=== PATIENT | female | born 1935 | race Caucasian/White ===

== ENCOUNTER 2018-10-24 09:28 | Inpatient (IN) | payer OTHER, MEDICARE ==
--- NOTE | 2018-10-24 10:13 | PDOC ---
History of Present Illness - General Chief Complaint: Edema Stated Complaint: BILATERAL LEG SWELLING Time Seen by Provider: 10/24/18 09:57 History Source: Patient (Patient brought in by ambulance from an assisted living facility because she couldn't walk due to swelling of her legs badly swollen as bad "as when she was ", SOB), EMS Exam Limitations: Clinical Condition - History of Present Illness Timing/Duration: unsure, getting worse Severity: moderate, severe Associated Symptoms: reports: shortness of breath, weakness Past History - Travel Traveled outside of the country in the last 30 days: No Close contact w/someone who was outside of country & ill: No - Past Medical History Allergies/Adverse Reactions: Allergies Allergy/AdvReac Type Severity Reaction Status Date / Time No Known Allergies Allergy Unverified 10/24/18 09:30 Home Medications: Ambulatory Orders Aspirin [Aspirin EC] 81 mg PO DAILY 10/24/18 Cholecalciferol (Vitamin D3) [Vitamin D3] 2,000 unit PO DAILY 10/24/18 Metoprolol Succinate [Toprol Xl] 200 mg PO DAILY 10/24/18 Simvastatin 20 mg PO DAILY 10/24/18 Aspirin [ASA -] 81 mg PO DAILY tab.chew 10/29/18 Azithromycin [Zithromax 250mg Tablets -] 250 mg PO DAILY 7 Days #7 tablet Furosemide [Lasix -] 20 mg PO DAILY tablet 10/29/18 Levothyroxine [Synthroid -] 25 mcg PO DAILY@0700 tablet 10/29/18 Magnesium Oxide [Mag-Ox -] 400 mg PO BID tablet 10/29/18 Metoprolol Succinate [Toprol XL -] 200 mg PO DAILY tab.sr.24h 10/29/18 Sacubitril/Valsartan [Entresto 49 mg-51 mg Tablet] 1 tab PO BID tablet Spironolactone [Aldactone -] 25 mg PO DAILY tablet 10/29/18 Venlafaxine HCl [Effexor -] 25 mg PO DAILY tablet 10/29/18 COPD: No CHF: Yes HTN: Yes Hypercholesterolemia: Yes Other medical history: arthritis, hernia , bleeding ulcer - Suicide/Smoking/Psychosocial Hx Smoking History: Former smoker Have you smoked in the past 12 months: No If you are a former smoker, when did you quit?: 40 years Information on smoking cessation initiated: No Hx Alcohol Use: No Drug/Substance Use Hx: No Review of Systems - Review of Systems Able to Perform ROS?: Yes Is the patient limited Mongolian proficient: Yes Constitutional: Yes: Symptoms Reported, See HPI, Malaise, Weakness HEENTM: No: Symptoms Reported, See HPI, Eye Pain, Blurred Vision, Tearing, Recent change in vision, Double Vision, Cataracts, Ear Pain, Ocular Prothesis, Ear Discharge, Nose Pain, Nose Congestion, Tinnitus, Nose Bleeding, Hearing Loss , Throat Pain, Throat Swelling, Mouth Pain, Dental Problems, Difficulty Swallowing, Mouth Swelling, Other Respiratory: Yes: SOB with Exertion Cardiac (ROS): No: Symptoms Reported, See HPI, Chest Pain, Edema, Irregular Heart Rate, Lightheadedness, Palpitations, Syncope, Chest Tightness, Other ABD/GI: No: Symptoms Reported, See HPI, Abdominal Distended, Abd. Pain w/ defecation, Blood Streaked Bowels, Constipated, Diarrhea, Difficulty Swallowing , Nausea, Poor Appetite, Poor Fluid Intake, Rectal Bleeding, Vomiting, Indigestion, Abdominal cramping, Tarry Stools, Other : Yes: Frequency Musculoskeletal: Yes: See HPI, Other (swollen bilateral lower extremities) Integumentary: Yes: Symptoms Reported, Rash (chronic eczematous scaly red skin lower extremities), Other Neurological: Yes: Symptoms reported, Weakness Psychiatric: Yes: Depression All Other Systems: Reviewed and Negative *Physical Exam - Vital Signs Last Vital Signs Temp Pulse Resp BP Pulse Ox 97.9 F 95 H 16 153/81 95 10/24/18 09:29 10/24/18 09:29 10/24/18 09:29 10/24/18 09:10/24/18 09:29 - Physical Exam General Appearance: Yes: Nourished, Appropriately Dressed, Moderate Distress, Thin HEENT: positive: WHIT Neck: positive: Supple Respiratory/Chest: positive: Decreased Breath Sounds Cardiovascular: positive: Regular Rhythm Gastrointestinal/Abdominal: positive: Normal Bowel Sounds, Soft. negative: Tender, Organomegaly, Decreased BS Extremity: positive: Delayed Capillary Refill, Swelling Integumentary: positive: Normal Color, Other (Distal skin chronic changes lower extremities, pressure ulcers, presacral area) Neurologic: positive: literary agent II-XII NML intact, Alert, Normal Mood/Affect Heart Score/ECG Review - Age Age: 45-65 - Risk Factors Risk Factors Heart Score: Yes Hx Hypertension - Troponin Troponin: </= normal limit - ECG Intrepretation Rhythm: Regular Rhythm - Riegelwood Riegelwood: Left [place] Deviation - P and [place] Atrial Enlargement: Left - ST and T Comment:: LBBB 11/01/18 17:56 - ECG Impressions Torsades burke Pointes: No ED Treatment Course - LABORATORY CBC & Chemistry Diagram: 10/24/18 10:20 10/28/18 08:00 - RADIOLOGY Radiology Studies Ordered: Category Date Time Status SALOMON [CHEST X-RAY PORTABLE*] [RAD] Stat Radiology 10/24/18 09:42 Ordered Medical Decision Making - Critical Care Time Total Critical Care Time (minutes): 30 Critical Care Statement: The care of this patient involved high complexity decision making to prevent further life threatening deterioration of the patient 's condition and/or to evaluate & treat vital organ system(s) failure or risk of failure. - Medical Decision Making Patient condition with bilateral leg edema , LBBB on EKG , unknown time warranted further exploration and treatment as inpatient, Discussed with PMD, Dr Juares present here Patient's daughter present here, informed about the status 11/01/18 17:57 *DC/Admit/Observation/Transfer Diagnosis at time of Disposition: Left bundle branch block (LBBB) CHF exacerbation Qualifiers: Heart failure type: combined systolic and diastolic Qualified Code(s): I50.43 - Acute on chronic combined systolic (congestive) and diastolic (congestive) heart failure Hypothyroidism Qualifiers: Hypothyroidism type: other Qualified Code(s): E03.8 - Other specified hypothyroidism - Discharge Dispostion Condition at time of disposition: Stable Decision to Admit order: Yes - Referrals - Patient Instructions - Post Discharge Activity
[2018-10-24 10:43] LABS: BASO % 0.8 % (0-2.0); EOS % 0.4 % (0-4.5); HEMATOCRIT 39.1 % (32.4-45.2); LYMPH % 18.1 % (8-40); MCH 28.2 pg (25.7-33.7); MCHC 33.2 g/dl (32.0-36.0); MEAN PLT VOLUME 7.7 fl (7.5-11.1); MONO % 9.8 % (3.8-10.2); NEUT % 70.9 % (42.8-82.8); PLATELET COUNT 260 K/MM3 (134-434); RDW 15.9 % (11.6-15.6); WHITE BLOOD COUNT 5.9 K/mm3 (4.0-10.8)
--- NOTE | 2018-10-24 11:49 | EKG ---
Test Reason : Blood Pressure : / mmHG Vent. Rate : 093 BPM Atrial Rate : 093 BPM P-R Int : 156 ms QRS Dur : 136 ms QT Int : 416 ms P-R-T Axes : 082 -49 120 degrees QTc Int : 517 ms SINUS RHYTHM WITH PREMATURE ATRIAL COMPLEXES LEFT AXIS DEVIATION LEFT BUNDLE BRANCH BLOCK ABNORMAL ECG NO PREVIOUS ECGS AVAILABLE Confirmed by FELI EASLEY, MAIA ([id number]) on 10/24/2018 11:49:19 AM Referred By: ZENA FORD Confirmed By:MAIA EDMOND MD
[2018-10-24 12:01] LABS: ALBUMIN 2.7 g/dl (3.4-5.0); BILIRUBIN,TOTAL 0.8 mg/dl (0.2-1); CALCIUM 8.4 mg/dl (8.5-10); CREATININE 0.7 mg/dl (0.55-1.3); POTASSIUM 3.8 mmol/L (3.5-5.1); TOT PROT 6.3 g/dl (6.4-8.2)
[2018-10-24] MEDS ORDERED: FUROSEMIDE 40 MG/4 ML INJECTABLE VIAL IVPUSH ONE (14:45)
--- NOTE | 2018-10-24 17:06 | CON.CARD ---
Consult Consult Specialty:: Cardiology Referred by:: Deepti Juares MD Reason for Consultation:: Volume overload - History of Present Illness Chief Complaint: LE edema History of Present Illness: 83 yo female h/o hypertensive heart disease, hyperlipidemia, diastolic failure referred from assisted living facility with progressive bilateral lower extremity swelling without dyspnea, orthopnea, PND, near or true syncope or palpitations, patient reports compliance with diet and medications. - History Source History Provided By: Patient Limitations to Obtaining History: No Limitations - Past Medical History ...: No - Alcohol/Substance Use Hx Alcohol Use: No - Smoking History Smoking history: Former smoker Have you smoked in the past 12 months: No If you are a former smoker, when did you quit?: 40 years Home Medications - Allergies Allergies/Adverse Reactions: Allergies Allergy/AdvReac Type Severity Reaction Status Date / Time No Known Allergies Allergy Unverified 10/24/18 09:30 - Home Medications Home Medications: Ambulatory Orders Aspirin [Aspirin EC] 81 mg PO DAILY 10/24/18 Cholecalciferol (Vitamin D3) [Vitamin D3] 2,000 unit PO DAILY 10/24/18 Furosemide [Lasix] 40 mg PO DAILY 10/24/18 Metoprolol Succinate [Toprol Xl] 200 mg PO DAILY 10/24/18 Olmesartan Medoxomil 40 mg PO DAILY 10/24/18 Potassium Chloride [K-Dur -] 20 meq PO DAILY 10/24/18 Simvastatin 20 mg PO DAILY 10/24/18 Review of Systems - Review of Systems Cardiovascular: reports: Edema Vital Signs: Vital Signs Temperature 97.9 F 10/24/18 14:19 Pulse Rate 87 10/24/18 14:19 Respiratory Rate 20 10/24/18 14:19 Blood Pressure 157/71 10/24/18 14:19 O2 Sat by Pulse Oximetry (%) 96 10/24/18 14:19 Constitutional: Yes: No Distress, Calm, Thin Neck: Yes: Supple Respiratory: Yes: Regular, Diminished Gastrointestinal: Yes: Normal Bowel Sounds, Soft Cardiovascular: Yes: Regular Rate and Rhythm JVD: No Carotid Bruit: No Heart Sounds: Yes: S1, S2 Edema: Yes Edema: LLE: 2+, RLE: 2+ Integumentary: Yes: Venous Stasis Changes - Other Data Labs, Other Data: CBC, BMP 10/24/18 10:20 10/24/18 11:15 Troponin, BNP 10/24/18 10/24/18 11:15 11:15 Troponin I 0.08 H B-Natriuretic Peptide 00590.6 H Troponin, BNP 10/24/18 10/24/18 11:15 11:15 Troponin I 0.08 H B-Natriuretic Peptide 38377.6 H NSR @ 93 LAD, LBBB Imaging - Results Chest X-ray: Report Reviewed (NAD) Problem List - Problems (1) Hypertensive heart disease with acute on chronic diastolic congestive heart failure Code(s): I11.0 - HYPERTENSIVE HEART DISEASE WITH HEART FAILURE; I50.33 - ACUTE ON CHRONIC DIASTOLIC (CONGESTIVE) HEART FAILURE (2) Hyperlipidemia Code(s): E78.5 - HYPERLIPIDEMIA, UNSPECIFIED Qualifiers: Hyperlipidemia type: pure hypercholesterolemia Qualified Code(s): E78.00 - Pure hypercholesterolemia, unspecified; E78.0 - Pure hypercholesterolemia (3) Subendocardial ischemia Code(s): I24.8 - OTHER FORMS OF ACUTE ISCHEMIC HEART DISEASE (4) Left bundle branch block (LBBB) Code(s): I44.7 - LEFT BUNDLE-BRANCH BLOCK, UNSPECIFIED (5) CHF exacerbation Code(s): I50.9 - HEART FAILURE, UNSPECIFIED Qualifiers: Heart failure type: diastolic Qualified Code(s): I50.33 - Acute on chronic diastolic (congestive) heart failure Assessment/Plan 1. Acute on chronic LV diastolic heart failure 2. Hypertensive heart disease 3. Hyperlipidemia 4. Subendocardial ischemia 5. Left bundle branch block P 1: IV diuresis with monitor diuretic response, renal fxn and electrolytes, trend trops, check TSH and lipid panel 2. Continue ASA 81 qd, Toprol XL 200 qd, Benicar 40 qd and Zocor 20 qhs 3. Echocardiogram to assess ventricular and valve fxn 4. Thank you for consultative opportunity
[2018-10-24 20:47] LABS: EPITHELIAL CELLS FEW /hpf
[2018-10-24] MEDS: ATORVASTATIN CA 20 MG TABLET (FP) PO SCH (21:21)
--- NOTE | 2018-10-24 21:49 | HP ---
Admitting History and Physical - Admission Chief Complaint: weak ower extrmities and inability to walk History of Present Illness: 83 yo female resident at [facility] developed over the past 2 weeks edema of the lower extremities and difficulty ambulating without dyspnea, palpitations or chest pain. Approximately 1 month ago she was treated with Zithromax for an"upper respiratory tract infection" and improved clinically. Patient has a baseline of +2 edema. I evaluated her 3 days ago and prescribed Lasix 40 mg daily. Patient took 2 doses until now.Today although edema improved the patient had difficulty walking and weakness.Patient denies chest pain or palpitations. EMS was activated. History Source: Patient, Medical Record Limitations to Obtaining History: Clinical Condition - Past Medical History ...: No - Past Surgical History Additional Past Surgical History: right hip replacement - Smoking History Smoking history: Former smoker Have you smoked in the past 12 months: No If you are a former smoker, when did you quit?: 40 years - Alcohol/Substance Use Hx Alcohol Use: No Home Medications - Allergies Allergies/Adverse Reactions: Allergies Allergy/AdvReac Type Severity Reaction Status Date / Time No Known Allergies Allergy Unverified 10/24/18 09:30 - Home Medications Home Medications: Ambulatory Orders Aspirin [Aspirin EC] 81 mg PO DAILY 10/24/18 Cholecalciferol (Vitamin D3) [Vitamin D3] 2,000 unit PO DAILY 10/24/18 Furosemide [Lasix] 40 mg PO DAILY 10/24/18 Metoprolol Succinate [Toprol Xl] 200 mg PO DAILY 10/24/18 Olmesartan Medoxomil 40 mg PO DAILY 10/24/18 Potassium Chloride [K-Dur -] 20 meq PO DAILY 10/24/18 Simvastatin 20 mg PO DAILY 10/24/18 Review of Systems - Review of Systems Constitutional: reports: Weakness Eyes: reports: No Symptoms HENT: reports: Other (rhinorrhea) Neck: reports: No Symptoms Cardiovascular: reports: Edema Respiratory: reports: No Symptoms Gastrointestinal: denies: Abdominal Pain Genitourinary: reports: No Symptoms Breasts: reports: No Symptoms Reported Integumentary: reports: Erythema (of the antior shins bilarally, no discharge,) Neurological: reports: Weakness Endocrine: reports: No Symptoms Hematology/Lymphatic: reports: No Symptoms Psychiatric: reports: Depression Physical Examination Vital Signs: Vital Signs Temperature 97.9 F 10/24/18 14:19 Pulse Rate 87 10/24/18 14:19 Respiratory Rate 20 10/24/18 14:19 Blood Pressure 157/71 10/24/18 14:19 O2 Sat by Pulse Oximetry (%) 96 10/24/18 14:19 Findings/Remarks: Patient was seen in ER. She is alert and oriented and says that she did not fall. Tehr eis no dyspnea. Constitutional: Yes: No Distress, Mild Distress Eyes: Yes: Conjunctiva Clear, EOM Intact HENT: Yes: Atraumatic, Normocephalic Neck: Yes: Supple, Trachea Midline Cardiovascular: Yes: Regular Rate and Rhythm, S1, S2 Respiratory: Yes: Regular, CTA Bilaterally, SOB, SOB on Exertion. No: Cough, Dullness, Orthopnea, Rales, Rhonchi, Wheezes Gastrointestinal: Yes: Normal Bowel Sounds, Soft, Abdomen, Obese. No: Ascites, Hepatomegaly, Splenomegaly Musculoskeletal: Yes: Joint Swelling (bilateral at ankle level and elbows) Extremities: Yes: Erythema. No: Calf Tenderness Edema: LLE: 2+, RLE: 2+ Peripheral Pulses WNL: No (difficult to assess due to edema) Neurological: Yes: Alert, Oriented, Weakness Psychiatric: Yes: Alert, Oriented Labs: CBC, BMP 10/24/18 10:20 10/24/18 11:15 Imaging - Results Chest X-ray: Other (read by me: cardiomegaly, no pleural effuson, no infiltarte , right parahilar infiltrate) Problem List - Problems (1) CHF exacerbation Assessment/Plan: LAsix 40 mg iv daily ECHO CArdiology consult EKG cardiac enzymes, LIPIDS, tsh ALL PREVIOUSLY NORMAL Code(s): I50.9 - HEART FAILURE, UNSPECIFIED Qualifiers: Heart failure type: combined systolic and diastolic Qualified Code(s): I50.43 - Acute on chronic combined systolic (congestive) and diastolic ( congestive) heart failure (2) Hypertensive heart disease with acute on chronic diastolic congestive heart failure Assessment/Plan: continue Losartan add LAsix Code(s): I11.0 - HYPERTENSIVE HEART DISEASE WITH HEART FAILURE; I50.33 - ACUTE ON CHRONIC DIASTOLIC (CONGESTIVE) HEART FAILURE (3) Left bundle branch block (LBBB) Assessment/Plan: PRE EXISTENT AND NOT A NEW EVENT Code(s): I44.7 - LEFT BUNDLE-BRANCH BLOCK, UNSPECIFIED (4) Pneumonia Assessment/Plan: the radiological image present in the right hilum could be the related to the respiratory symptoms pateint had 1 month ago and fo which she was trtaeted at this time there is no cough or chest pain I would err on eside of treating and add Ceftriaxone 1 gm daily 10 days plus Zithromax Code(s): J18.9 - PNEUMONIA, UNSPECIFIED ORGANISM (5) Cellulitis of lower extremity Assessment/Plan: on Ceftriaxone LAsix 40 mg daily Code(s): L03.119 - CELLULITIS OF UNSPECIFIED PART OF LIMB Qualifiers: Laterality: unspecified laterality Qualified Code(s): L03.119 - Cellulitis of unspecified part of limb
[2018-10-25 07:47] LABS: CREATININE 0.7 mg/dl (0.55-1.3); MAGNESIUM 1.5 mg/dL (1.8-2.4); POTASSIUM 4.1 mmol/L (3.5-5.1)
[2018-10-25] MEDS ORDERED: MAGNESIUM 1GM/D5W - 1 GM/100 ML IVPB IVPB ONE (08:30)
[2018-10-25] MEDS ORDERED: AZITHROMYCIN 500 MG TABLET PO ONE (08:30)
[2018-10-25] MEDS: CEFTRIAXONE 1 G/50 ML PREMIX 50 ML IVPB SCH ×2 (08:47→10:08)
[2018-10-25] MEDS ORDERED: VALSARTAN 160 MG TABLET (UD) PO SCH (10:00)
[2018-10-25] MEDS: FUROSEMIDE 40 MG/4 ML INJECTABLE VIAL IVPUSH SCH (10:09)
[2018-10-25] MEDS: MAGNESIUM OXIDE 400 MG TABLET (FP) PO SCH ×2 (10:09→21:14)
[2018-10-25] MEDS: ASPIRIN 81 MG CHEWABLE TABLETS PO SCH (10:09)
--- NOTE | 2018-10-25 12:10 | ECHO ---
Name: CORNELIUS ZACH Exam:Adult Echocardiogram Study Date: 10/25/2018 08:37 AM Age: 83 yrs Reason For Study: CHF Height: 59 in Weight: 99 lb BSA: 1.4 m2 MMode/2D Measurements & Calculations IVSd: 1.2 cm Ao root diam: 2.6 cm LVIDd: 4.2 cm LA dimension: 3.9 cm LVIDs: 3.4 cm LVPWd: 1.1 cm EDV(Teich): 79.2 ml LVOT diam: 2.0 cm ESV(Teich): 48.7 ml Doppler Measurements & Calculations MV E max eliot: 123.4 cm/sec MV A max eliot: 152.6 cm/sec MV dec slope: 1969 cm/sec2 MV E/A: 0.81 Ao V2 max: 287.5 cm/sec LV V1 max P.4 mmHg Ao max P.1 mmHg LV V1 mean P.6 mmHg Ao V2 mean: 203.2 cm/sec LV V1 max: 76.8 cm/sec Ao mean P.3 mmHg LV V1 mean: 61.1 cm/sec Ao V2 VTI: 64.0 cm LV V1 VTI: 14.8 cm BEKAH(I,D): 0.73 cm2 BEKAH(V,D): 0.84 cm2 MR max eliot: 526.7 cm/sec SV(LVOT): 46.5 ml MR max P.3 mmHg TR max eliot: 333.4 cm/sec PA V2 max: 98.9 cm/sec TR max P.6 mmHg PA max P.9 mmHg PI end-d eliot: 133.7 cm/sec Procedure A complete two-dimensional transthoracic echocardiogram was performed (2D, M-mode, Doppler and color flow Doppler). Left Ventricle The left ventricle is normal in size. Ejection Fraction = 20-25%. Left ventricular systolic function is severely reduced. There is severe global hypokinesis of the left ventricle. Right Ventricle The right ventricle is normal in size and function. Atria The left atrium is mildly dilated. The right atrium is mildly dilated. Mitral Valve There is moderate mitral regurgitation. Tricuspid Valve There is mild tricuspid regurgitation. Right ventricular systolic pressure is elevated at 40-50mmHg. Aortic Valve Moderate valvular aortic stenosis. Trace to mild aortic regurgitation. Pulmonic Valve Trace pulmonic valvular regurgitation. Great Vessels The aortic root is normal size. Pericardium/Pleura There is no pericardial effusion. Interpretation Summary Left ventricular systolic function is severely reduced. There is severe global hypokinesis of the left ventricle. The right ventricle is normal in size and function. The left atrium is mildly dilated. The right atrium is mildly dilated. There is moderate mitral regurgitation. There is mild tricuspid regurgitation. Right ventricular systolic pressure is elevated at 40-50mmHg. Trace to mild aortic regurgitation. Moderate valvular aortic stenosis. Trace pulmonic valvular regurgitation. MD Ben Oconnell 10/25/2018 12:09 PM
--- NOTE | 2018-10-25 12:59 | PN ---
Progress Note, Physician History of Present Illness: Bilateral lower extremity swelling improving with diuresis. Denies dyspnea, orthopnea, PND, near or true syncope or palpitations. - Current Medication List Current Medications: Active Medications Aspirin (Asa -) 81 mg PO DAILY [facility] Last Admin: 10/25/18 10:09 Dose: 81 mg Atorvastatin Calcium (Lipitor -) 20 mg PO HS [facility] Last Admin: 10/24/18 21:21 Dose: 20 mg Azithromycin (Zithromax -) 250 mg PO DAILY [facility] Stop: 10/28/18 10:01 Furosemide (Lasix Injection -) 40 mg IVPUSH DAILY [facility] Last Admin: 10/25/18 10:09 Dose: 40 mg Ceftriaxone Sodium (Ceftriaxone 1 Gm-D5w Bag) 50 mls @ 100 mls/hr IVPB DAILY [facility] Last Admin: 10/25/18 10:08 Dose: Not Given Magnesium Oxide (Mag-Ox -) 400 mg PO BID [facility] Last Admin: 10/25/18 10:09 Dose: 400 mg Metoprolol Succinate (Toprol Xl -) 200 mg PO DAILY [facility] Last Admin: 10/25/18 10:09 Dose: 200 mg Valsartan (Diovan -) 160 mg PO DAILY [facility] Last Admin: 10/25/18 10:09 Dose: 160 mg - Objective Vital Signs: Vital Signs Temperature 98.4 F 10/25/18 09:04 Pulse Rate 96 H 10/25/18 09:04 Respiratory Rate 18 10/25/18 09:04 Blood Pressure 130/71 10/25/18 09:04 O2 Sat by Pulse Oximetry (%) 97 10/25/18 09:00 Constitutional: Yes: No Distress, Calm, Thin Neck: Yes: Supple Cardiovascular: Yes: Regular Rate and Rhythm Respiratory: Yes: Regular, Diminished, On Nasal O2 Gastrointestinal: Yes: Normal Bowel Sounds, Soft Edema: No Labs: CBC, BMP 10/24/18 10:20 10/25/18 07:15 - ....Imaging EKG: Report Reviewed (Tele: NSR) Problem List - Problems (1) Hyperlipidemia Code(s): E78.5 - HYPERLIPIDEMIA, UNSPECIFIED Qualifiers: Qualified Code(s): E78.00 - Pure hypercholesterolemia, unspecified; E78.0 - Pure hypercholesterolemia (2) Subendocardial ischemia Code(s): I24.8 - OTHER FORMS OF ACUTE ISCHEMIC HEART DISEASE (3) Left bundle branch block (LBBB) Code(s): I44.7 - LEFT BUNDLE-BRANCH BLOCK, UNSPECIFIED (4) CHF exacerbation Code(s): I50.9 - HEART FAILURE, UNSPECIFIED Qualifiers: Qualified Code(s): I50.43 - Acute on chronic combined systolic (congestive) and diastolic (congestive) heart failure (5) Hypertensive cardiomyopathy Code(s): I11.9 - HYPERTENSIVE HEART DISEASE WITHOUT HEART FAILURE; I43 - CARDIOMYOPATHY IN DISEASES CLASSIFIED ELSEWHERE Qualifiers: Qualified Code(s): I11.0 - Hypertensive heart disease with heart failure; I43 - Cardiomyopathy in diseases classified elsewhere Assessment/Plan 10/24/2018 Echocardiogram: Normal LV size with severe decreased LVED 20-25%, normal RV size and fxn, mild LINDA, mod MR, mild TR RVSP 40-50 mmHg, tr-mild AR, mod MG 18 mmHg, tr [place] 1. Acute on chronic LV diastolic/systolic heart failure resolving 2. Hypertensive heart disease 3. Hyperlipidemia 4. Subendocardial ischemia 5. Left bundle branch block 6. Abnormal TSH suggestive of hypothyroidism P 1: Oral diuresis with monitor diuretic response, renal fxn and electrolytes, trops downtrending, check full TFTs 2. Continue ASA 81 qd, Toprol XL 200 qd, Lipitor 20 qhs, change Diovan 160 qd to Entresto 49/51 bid, start Aldactone 25 qd 3. Ideally recommend R&LHc to establish etiology of cardiomyopathy, LifeVest and consideration for SHIRT FOLDER-D once euvolemic, but patient wants only medical therapy for now after discussion of risks and benefits, will readdress at a later date
[2018-10-25] MEDS: SPIRONOLACTONE 25 MG TABLET (FP) PO SCH (15:05)
[2018-10-25] MEDS ORDERED: PT OWN MED DRAWER 7, Y5N ONE (21:09)
[2018-10-25] MEDS: SACUBITRIL/VALSARTAN 49 MG-51 MG TABLET PO SCH (21:13)
[2018-10-25] MEDS: ATORVASTATIN CA 20 MG TABLET (FP) PO SCH (21:14)
--- NOTE | 2018-10-25 21:53 | PN ---
Progress Note, Physician Chief Complaint: edema, shortness of breath History of Present Illness: 83 yo female admitted for edema of the lower extremities, inability to walk due to weakness and fall at the assisted living facility. PAtient had minimal elevation of her cardiac enzymes without new EKG changes. Edema improved with the administration of Lasix iv. PAtient s still very weak and nelson spoor appetite. The CxR showed right mid lobe infiltrate. - Current Medication List Current Medications: Active Medications Aspirin (Asa -) 81 mg PO DAILY [facility] Last Admin: 10/25/18 10:09 Dose: 81 mg Atorvastatin Calcium (Lipitor -) 20 mg PO HS [facility] Last Admin: 10/25/18 21:14 Dose: 20 mg Azithromycin (Zithromax -) 250 mg PO DAILY [facility] Stop: 10/28/18 10:01 Furosemide (Lasix Injection -) 40 mg IVPUSH DAILY [facility] Last Admin: 10/25/18 10:09 Dose: 40 mg Ceftriaxone Sodium (Ceftriaxone 1 Gm-D5w Bag) 50 mls @ 100 mls/hr IVPB DAILY [facility] Last Admin: 10/25/18 10:08 Dose: Not Given Levothyroxine Sodium (Synthroid -) 25 mcg PO DAILY@0700 [facility] Magnesium Oxide (Mag-Ox -) 400 mg PO BID [facility] Last Admin: 10/25/18 21:14 Dose: 400 mg Metoprolol Succinate (Toprol Xl -) 200 mg PO DAILY [facility] Last Admin: 10/25/18 10:09 Dose: 200 mg Sacubitril/Valsartan (Entresto 49 Mg-51 Mg Tablet) 1 tab PO BID [facility] Last Admin: 10/25/18 21:13 Dose: 1 tab Spironolactone (Aldactone -) 25 mg PO DAILY [facility] Last Admin: 10/25/18 15:05 Dose: 25 mg - Objective Vital Signs: Vital Signs Temperature 99.3 F 10/25/18 14:20 Pulse Rate 94 H 10/25/18 14:20 Respiratory Rate 18 10/25/18 14:20 Blood Pressure 131/74 10/25/18 14:20 O2 Sat by Pulse Oximetry (%) 90 L 10/25/18 14:21 Constitutional: Yes: No Distress, Calm Eyes: Yes: Conjunctiva Clear, EOM Intact HENT: Yes: Atraumatic, Normocephalic Neck: Yes: Supple, Trachea Midline Cardiovascular: Yes: Regular Rate and Rhythm, S1, S2 Respiratory: Yes: Regular Gastrointestinal: Yes: Normal Bowel Sounds, Soft ...Rectal Exam: Yes: Deferred Breast(s): Yes: WNL Edema: LLE: 1+, RLE: 1+ Neurological: Yes: Alert, Oriented Psychiatric: Yes: Alert, Oriented Labs: CBC, BMP 10/24/18 10:20 10/25/18 07:15 Problem List - Problems (1) CHF exacerbation Assessment/Plan: LAsix 40 mg iv daily ECHO showing diasilic failure startred on Entresto bid Code(s): I50.9 - HEART FAILURE, UNSPECIFIED Qualifiers: Heart failure type: combined systolic and diastolic Qualified Code(s): I50.43 - Acute on chronic combined systolic (congestive) and diastolic ( congestive) heart failure (2) Hypertensive heart disease with acute on chronic diastolic congestive heart failure Assessment/Plan: stopped Losartan started Entresto Code(s): I11.0 - HYPERTENSIVE HEART DISEASE WITH HEART FAILURE; I50.33 - ACUTE ON CHRONIC DIASTOLIC (CONGESTIVE) HEART FAILURE (3) Left bundle branch block (LBBB) Assessment/Plan: PRE EXISTENT AND NOT A NEW EVENT Code(s): I44.7 - LEFT BUNDLE-BRANCH BLOCK, UNSPECIFIED (4) Pneumonia Assessment/Plan: the radiological image present in the right hilum could be the related to the respiratory symptoms patient had 1 month ago and for which she was treated at this time there is no cough or chest pain Ceftriaxone 1 gm daily plus Zithromax were started Code(s): J18.9 - PNEUMONIA, UNSPECIFIED ORGANISM (5) Cellulitis of lower extremity Assessment/Plan: on Ceftriaxone LAsix 40 mg daily Code(s): L03.119 - CELLULITIS OF UNSPECIFIED PART OF LIMB Qualifiers: Laterality: unspecified laterality Qualified Code(s): L03.119 - Cellulitis of unspecified part of limb
[2018-10-26] MEDS: LEVOTHYROXINE NA 25 MCG TABLET (FP) PO SCH (06:20)
[2018-10-26 08:47] LABS: ALBUMIN 2.3 g/dl (3.4-5.0); BILIRUBIN,TOTAL 0.7 mg/dl (0.2-1); CALCIUM 7.9 mg/dl (8.5-10); CREATININE 0.7 mg/dl (0.55-1.3); MAGNESIUM 1.7 mg/dL (1.8-2.4); POTASSIUM 3.8 mmol/L (3.5-5.1); TOT PROT 5.6 g/dl (6.4-8.2)
--- NOTE | 2018-10-26 09:01 | PN ---
Progress Note, Physician History of Present Illness: Bilateral lower extremity swelling improving with diuresis. Denies chest pain, dyspnea, orthopnea, PND, near or true syncope or palpitations. OOB to chair comfortable. - Current Medication List Current Medications: Active Medications Aspirin (Asa -) 81 mg PO DAILY [facility] Last Admin: 10/25/18 10:09 Dose: 81 mg Atorvastatin Calcium (Lipitor -) 20 mg PO HS [facility] Last Admin: 10/25/18 21:14 Dose: 20 mg Azithromycin (Zithromax -) 250 mg PO DAILY [facility] Stop: 10/28/18 10:01 Furosemide (Lasix Injection -) 40 mg IVPUSH DAILY [facility] Stop: 10/26/18 23:59 Last Admin: 10/25/18 10:09 Dose: 40 mg Furosemide (Lasix -) 20 mg PO DAILY [facility] Ceftriaxone Sodium (Ceftriaxone 1 Gm-D5w Bag) 50 mls @ 100 mls/hr IVPB DAILY [facility] Last Admin: 10/25/18 10:08 Dose: Not Given Levothyroxine Sodium (Synthroid -) 25 mcg PO DAILY@0700 [facility] Last Admin: 10/26/18 06:20 Dose: 25 mcg Magnesium Oxide (Mag-Ox -) 400 mg PO BID [facility] Last Admin: 10/25/18 21:14 Dose: 400 mg Metoprolol Succinate (Toprol Xl -) 200 mg PO DAILY [facility] Last Admin: 10/25/18 10:09 Dose: 200 mg Sacubitril/Valsartan (Entresto 49 Mg-51 Mg Tablet) 1 tab PO BID [facility] Last Admin: 10/25/18 21:13 Dose: 1 tab Spironolactone (Aldactone -) 25 mg PO DAILY [facility] Last Admin: 10/25/18 15:05 Dose: 25 mg - Objective Vital Signs: Vital Signs Temperature 97.8 F 10/26/18 06:00 Pulse Rate 93 H 10/26/18 06:00 Respiratory Rate 20 10/26/18 06:00 Blood Pressure 148/79 10/26/18 06:00 O2 Sat by Pulse Oximetry (%) 95 10/26/18 07:54 Constitutional: Yes: No Distress, Calm, Thin Neck: Yes: Supple Cardiovascular: Yes: Regular Rate and Rhythm Respiratory: Yes: Regular, CTA Bilaterally Gastrointestinal: Yes: Normal Bowel Sounds, Soft Edema: No Labs: CBC, BMP 10/24/18 10:20 08/02/19 07:15 - ....Imaging EKG: Report Reviewed (Tele: NSR) Problem List - Problems (1) Hyperlipidemia Code(s): E78.5 - HYPERLIPIDEMIA, UNSPECIFIED Qualifiers: Hyperlipidemia type: pure hypercholesterolemia Qualified Code(s): E78.00 - Pure hypercholesterolemia, unspecified; E78.0 - Pure hypercholesterolemia (2) Subendocardial ischemia Code(s): I24.8 - OTHER FORMS OF ACUTE ISCHEMIC HEART DISEASE (3) Left bundle branch block (LBBB) Code(s): I44.7 - LEFT BUNDLE-BRANCH BLOCK, UNSPECIFIED (4) CHF exacerbation Code(s): I50.9 - HEART FAILURE, UNSPECIFIED Qualifiers: Heart failure type: combined systolic and diastolic Qualified Code(s): I50.43 - Acute on chronic combined systolic (congestive) and diastolic ( congestive) heart failure (5) Hypertensive cardiomyopathy Code(s): I11.9 - HYPERTENSIVE HEART DISEASE WITHOUT HEART FAILURE; I43 - CARDIOMYOPATHY IN DISEASES CLASSIFIED ELSEWHERE Qualifiers: Heart failure presence: with heart failure Qualified Code(s): I11.0 - Hypertensive heart disease with heart failure; I43 - Cardiomyopathy in diseases classified elsewhere Assessment/Plan 10/24/2018 Echocardiogram: Normal LV size with severe decreased LVED 20-25%, normal RV size and fxn, mild LINDA, mod MR, mild TR RVSP 40-50 mmHg, tr-mild AR, mod MG 18 mmHg, tr CO 1. Acute on chronic LV diastolic/systolic heart failure resolving 2. Hypertensive heart disease 3. Hyperlipidemia 4. Subendocardial ischemia 5. Left bundle branch block 6. Abnormal TSH suggestive of hypothyroidism P 1: Oral diuresis with monitor diuretic response, renal fxn and electrolytes, trops downtrending, f/u full TFTs 2. Continue ASA 81 qd, Toprol XL 200 qd, Lipitor 20 qhs, Entresto 49/51 bid, and Aldactone 25 qd with uptitration as hemodynamics tolerate 3. Replete K>4.0 and Mg>2.0 4. Ideally recommend R&LHc to establish etiology of cardiomyopathy, LifeVest and consideration for BABY FORMULA MIXER-D once euvolemic, but patient wants only medical therapy for now after discussion of risks and benefits, will readdress at a later date in office
[2018-10-26] MEDS ORDERED: POTASSIUM CHLORIDE ORAL LIQUID 20 MEQ/15 ML PO ONE (09:45)
[2018-10-26] MEDS ORDERED: PT OWN MED DRAWER 7, Y5N ONE ×5 (09:59→21:09)
[2018-10-26] MEDS: MAGNESIUM OXIDE 400 MG TABLET (FP) PO SCH ×2 (10:21→21:41)
[2018-10-26] MEDS: CEFTRIAXONE 1 G/50 ML PREMIX 50 ML IVPB SCH (10:22)
[2018-10-26] MEDS: AZITHROMYCIN 250 MG TABLET PO SCH (10:23)
[2018-10-26] MEDS: ASPIRIN 81 MG CHEWABLE TABLETS PO SCH (10:23)
[2018-10-26] MEDS: FUROSEMIDE 40 MG/4 ML INJECTABLE VIAL IVPUSH SCH (11:02)
[2018-10-26] MEDS: SPIRONOLACTONE 25 MG TABLET (FP) PO SCH (11:03)
[2018-10-26] MEDS: SACUBITRIL/VALSARTAN 49 MG-51 MG TABLET PO SCH (12:12)
[2018-10-26] MEDS ORDERED: MAGNESIUM SULF 50% (8.12 MEQ/2 ML-1 GM VIAL) IVPB ONE (14:29)
[2018-10-26] MEDS ORDERED: MAGNESIUM 1GM/D5W - 1 GM/100 ML IVPB IVPB ONE (14:45)
[2018-10-26] MEDS: VENLAFAXINE HCL 25 MG TABLET PO SCH (18:01)
[2018-10-26] MEDS: ATORVASTATIN CA 20 MG TABLET (FP) PO SCH (21:41)
[2018-10-26] MEDS: SACUBITRIL/VALSARTAN 24 MG-26 MG TABLET PO SCH (21:41)
--- NOTE | 2018-10-26 22:06 | PN ---
Progress Note, Physician Chief Complaint: edema decreased,was able to ambulate History of Present Illness: 83 yo female admitted for edema of the lower extremities, inability to walk due to weakness and fall at the assisted living facility. PAtient had minimal elevation of her cardiac enzymes without new EKG changes. Edema improved with the administration of Lasix iv. PAtient is still very weak and has poor appetite. The CxR showed right mid lobe infiltrate. Today there is no shortness of breath, edema improved considerably with diuresis and the patient was able to ambulate with assistance for a few steps. - Current Medication List Current Medications: Active Medications Aspirin (Asa -) 81 mg PO DAILY [facility] Last Admin: 10/26/18 10:23 Dose: 81 mg Atorvastatin Calcium (Lipitor -) 20 mg PO HS [facility] Last Admin: 10/26/18 21:41 Dose: 20 mg Azithromycin (Zithromax -) 250 mg PO DAILY [facility] Stop: 10/28/18 10:01 Last Admin: 10/26/18 10:23 Dose: 250 mg Furosemide (Lasix Injection -) 40 mg IVPUSH DAILY [facility] Stop: 10/26/18 23:59 Last Admin: 10/26/18 11:02 Dose: Not Given Furosemide (Lasix -) 20 mg PO DAILY [facility] Ceftriaxone Sodium (Ceftriaxone 1 Gm-D5w Bag) 50 mls @ 100 mls/hr IVPB DAILY [facility] Last Admin: 10/26/18 10:22 Dose: 100 mls/hr Levothyroxine Sodium (Synthroid -) 25 mcg PO DAILY@0700 [facility] Last Admin: 10/26/18 06:20 Dose: 25 mcg Magnesium Oxide (Mag-Ox -) 400 mg PO BID [facility] Last Admin: 10/26/18 21:41 Dose: 400 mg Metoprolol Succinate (Toprol Xl -) 200 mg PO DAILY [facility] Last Admin: 10/26/18 10:24 Dose: Not Given Sacubitril/Valsartan (Entresto 24 Mg-26 Mg Tablet) 1 tab PO BID [facility] Last Admin: 10/26/18 21:41 Dose: Not Given Spironolactone (Aldactone -) 25 mg PO DAILY [facility] Last Admin: 10/26/18 11:03 Dose: Not Given Venlafaxine HCl (Effexor -) 25 mg PO DAILY [facility] Last Admin: 10/26/18 18:01 Dose: Not Given - Objective Vital Signs: Vital Signs Temperature 98.7 F 10/26/18 18:00 Pulse Rate 77 10/26/18 18:00 Respiratory Rate 18 10/26/18 18:00 Blood Pressure 100/49 L 10/26/18 18:00 O2 Sat by Pulse Oximetry (%) 93 L 10/26/18 18:00 Constitutional: Yes: No Distress, Calm Eyes: Yes: Conjunctiva Clear, EOM Intact HENT: Yes: Atraumatic, Normocephalic Neck: Yes: Supple, Trachea Midline Cardiovascular: Yes: Regular Rate and Rhythm, S1, S2 Respiratory: Yes: Regular, CTA Bilaterally. No: Orthopnea, SOB, SOB on Exertion , Wheezes Gastrointestinal: Yes: Normal Bowel Sounds, Soft, Abdomen, Obese. No: Hepatomegaly, Splenomegaly Breast(s): Yes: WNL Extremities: No: Calf Tenderness Edema: Yes (bilateral calf) Edema: LUE: 1+, RUE: 1+ Peripheral Pulses WNL: Yes Integumentary: Yes: Pressure Ulcer (stage 2 of mata bottucks bilaterally) Neurological: Yes: Alert, Oriented Psychiatric: Yes: Alert, Oriented, Other (depressed mood) Labs: CBC, BMP 10/24/18 10:20 10/26/18 07:15 Problem List - Problems (1) Hypotension Assessment/Plan: held LAsix thsi am decrease Entresto to 24/2mg po bid Code(s): I95.9 - HYPOTENSION, UNSPECIFIED (2) CHF exacerbation Assessment/Plan: LAsix 20 mg po daily was held in the morning due to hypotension ECHO showing systolic and diastolic failure started on Entresto bid Code(s): I50.9 - HEART FAILURE, UNSPECIFIED Qualifiers: Heart failure type: combined systolic and diastolic Qualified Code(s): I50.43 - Acute on chronic combined systolic (congestive) and diastolic ( congestive) heart failure (3) Hypertensive heart disease with acute on chronic diastolic congestive heart failure Assessment/Plan: stopped Losartan started Entresto 24/26 mg bid Code(s): I11.0 - HYPERTENSIVE HEART DISEASE WITH HEART FAILURE; I50.33 - ACUTE ON CHRONIC DIASTOLIC (CONGESTIVE) HEART FAILURE (4) Left bundle branch block (LBBB) Assessment/Plan: PRE EXISTENT AND NOT A NEW EVENT Code(s): I44.7 - LEFT BUNDLE-BRANCH BLOCK, UNSPECIFIED (5) Pneumonia Assessment/Plan: the radiological image present in the right hilum could be the related to the respiratory symptoms patient had 1 month ago and for which she was treated at this time there is no cough or chest pain Ceftriaxone 1 gm daily plus Zithromax were started Code(s): J18.9 - PNEUMONIA, UNSPECIFIED ORGANISM (6) Cellulitis of lower extremity Assessment/Plan: on Ceftriaxone LAsix 20 mg po daily Code(s): L03.119 - CELLULITIS OF UNSPECIFIED PART OF LIMB Qualifiers: Laterality: unspecified laterality Qualified Code(s): L03.119 - Cellulitis of unspecified part of limb (7) Pressure ulcer Assessment/Plan: stage 2, Alevyn applications and Jody Guard as needed Code(s): L89.90 - PRESSURE ULCER OF UNSPECIFIED SITE, UNSPECIFIED STAGE Qualifiers: Pressure injury location: buttock (8) Hypothyroidism Code(s): E03.9 - HYPOTHYROIDISM, UNSPECIFIED (9) Hypothyroidism Assessment/Plan: started Synthroid 25 mcg po daily Code(s): E03.9 - HYPOTHYROIDISM, UNSPECIFIED
[2018-10-27] MEDS: LEVOTHYROXINE NA 25 MCG TABLET (FP) PO SCH (07:03)
[2018-10-27 08:29] LABS: ALBUMIN 2.4 g/dl (3.4-5.0); BILIRUBIN,TOTAL 0.6 mg/dl (0.2-1); CALCIUM 8.3 mg/dl (8.5-10); CREATININE 0.7 mg/dl (0.55-1.3); POTASSIUM 4.1 mmol/L (3.5-5.1); TOT PROT 5.8 g/dl (6.4-8.2)
[2018-10-27] MEDS ORDERED: PT OWN MED DRAWER 7, Y5N ONE ×3 (09:18→21:29)
[2018-10-27] MEDS: CEFTRIAXONE 1 G/50 ML PREMIX 50 ML IVPB SCH (09:56)
[2018-10-27] MEDS: AZITHROMYCIN 250 MG TABLET PO SCH (09:56)
[2018-10-27] MEDS: SACUBITRIL/VALSARTAN 24 MG-26 MG TABLET PO SCH ×3 (09:56→21:37)
[2018-10-27] MEDS: MAGNESIUM OXIDE 400 MG TABLET (FP) PO SCH ×2 (09:57→21:37)
[2018-10-27] MEDS: VENLAFAXINE HCL 25 MG TABLET PO SCH (09:57)
[2018-10-27] MEDS: ASPIRIN 81 MG CHEWABLE TABLETS PO SCH (09:57)
[2018-10-27] MEDS: SPIRONOLACTONE 25 MG TABLET (FP) PO SCH (10:51)
[2018-10-27] MEDS: FUROSEMIDE 20 MG TABLET (FP) PO SCH (10:51)
--- NOTE | 2018-10-27 15:48 | PN ---
Progress Note, Physician Chief Complaint: edema decreased,was able to ambulate feels better suspicious and asking if she is in a hospital, if we are giving her "drugs" or if we are "experimenting on her", and if we have "experience" with patients; concerned she "may be in a snf", otherwise pleasant History of Present Illness: 83 yo female admitted for edema of the lower extremities, inability to walk due to weakness and fall at the assisted living facility. PAtient had minimal elevation of her cardiac enzymes without new EKG changes. Edema improved with the administration of Lasix iv. PAtient is still very weak and has poor appetite. The CxR showed right mid lobe infiltrate. Today there is no shortness of breath, edema improved considerably with diuresis and the patient was able to ambulate with assistance for a few steps. - Current Medication List Current Medications: Active Medications Aspirin (Asa -) 81 mg PO DAILY [facility] Last Admin: 10/27/18 09:57 Dose: 81 mg Atorvastatin Calcium (Lipitor -) 20 mg PO HS [facility] Last Admin: 10/26/18 21:41 Dose: 20 mg Azithromycin (Zithromax -) 250 mg PO DAILY [facility] Stop: 10/28/18 10:01 Last Admin: 10/27/18 09:56 Dose: 250 mg Furosemide (Lasix -) 20 mg PO DAILY [facility] Last Admin: 10/27/18 10:51 Dose: 20 mg Ceftriaxone Sodium (Ceftriaxone 1 Gm-D5w Bag) 50 mls @ 100 mls/hr IVPB DAILY [facility] Last Admin: 10/27/18 09:56 Dose: 100 mls/hr Levothyroxine Sodium (Synthroid -) 25 mcg PO DAILY@0700 [facility] Last Admin: 10/27/18 07:03 Dose: 25 mcg Magnesium Oxide (Mag-Ox -) 400 mg PO BID [facility] Last Admin: 10/27/18 09:57 Dose: 400 mg Metoprolol Succinate (Toprol Xl -) 200 mg PO DAILY [facility] Last Admin: 10/27/18 10:52 Dose: 200 mg Sacubitril/Valsartan (Entresto 24 Mg-26 Mg Tablet) 1 tab PO BID [facility] Last Admin: 10/27/18 10:51 Dose: 1 tab Spironolactone (Aldactone -) 25 mg PO DAILY [facility] Last Admin: 10/27/18 10:51 Dose: 25 mg Venlafaxine HCl (Effexor -) 25 mg PO DAILY [facility] Last Admin: 10/27/18 09:57 Dose: 25 mg - Objective Vital Signs: Vital Signs Temperature 97.7 F 10/27/18 14:00 Pulse Rate 63 10/27/18 14:00 Respiratory Rate 17 10/27/18 14:00 Blood Pressure 113/73 10/27/18 14:00 O2 Sat by Pulse Oximetry (%) 96 10/27/18 14:00 Constitutional: Yes: No Distress, Calm Eyes: Yes: Conjunctiva Clear, EOM Intact HENT: Yes: Atraumatic, Normocephalic Neck: Yes: Supple, Trachea Midline Cardiovascular: Yes: Regular Rate and Rhythm, S1, S2 Respiratory: Yes: Regular, CTA Bilaterally. No: Cough, SOB, SOB on Exertion Gastrointestinal: Yes: Normal Bowel Sounds, Soft. No: Melena, Splenomegaly Breast(s): Yes: WNL Extremities: Yes: WNL. No: Calf Tenderness Peripheral Pulses WNL: Yes Neurological: Yes: Alert, Oriented ...Motor Strength: WNL Psychiatric: Yes: Alert, Oriented (for person but not for place), Other ( paranoid) Labs: CBC, BMP 10/24/18 10:20 10/27/18 07:20 Problem List - Problems (1) Hypotension Assessment/Plan: pn Lasix po decreased Entresto to 24/26mg po bid and tolerated it well Code(s): I95.9 - HYPOTENSION, UNSPECIFIED (2) CHF exacerbation Assessment/Plan: LAsix 20 mg po daily was given in the morning ECHO showing systolic and diastolic failure started on Entresto bid Code(s): I50.9 - HEART FAILURE, UNSPECIFIED Qualifiers: Heart failure type: combined systolic and diastolic Qualified Code(s): I50.43 - Acute on chronic combined systolic (congestive) and diastolic ( congestive) heart failure (3) Left bundle branch block (LBBB) Assessment/Plan: PRE EXISTENT AND NOT A NEW EVENT Code(s): I44.7 - LEFT BUNDLE-BRANCH BLOCK, UNSPECIFIED (4) Pneumonia Assessment/Plan: the radiological image present in the right hilum could be the related to the respiratory symptoms patient had 1 month ago and for which she was treated at this time there is no cough or chest pain Ceftriaxone 1 gm daily plus Zithromax were started Code(s): J18.9 - PNEUMONIA, UNSPECIFIED ORGANISM (5) Cellulitis of lower extremity Assessment/Plan: on Ceftriaxone LAsix 20 mg po daily Code(s): L03.119 - CELLULITIS OF UNSPECIFIED PART OF LIMB Qualifiers: Laterality: unspecified laterality Qualified Code(s): L03.119 - Cellulitis of unspecified part of limb (6) Pressure ulcer Assessment/Plan: stage 2, Alevyn applications and Jody Guard as needed Code(s): L89.90 - PRESSURE ULCER OF UNSPECIFIED SITE, UNSPECIFIED STAGE Qualifiers: Pressure injury location: buttock Pressure injury stage: stage 2 Laterality: unspecified laterality Qualified Code(s): L89.302 - Pressure ulcer of unspecified buttock, stage 2 (7) Hypothyroidism Assessment/Plan: started Synthroid Code(s): E03.9 - HYPOTHYROIDISM, UNSPECIFIED
--- NOTE | 2018-10-27 16:22 | PN ---
Progress Note, Physician Chief Complaint: Events noted Not in distress History of Present Illness: Patient was seen and examined. Awake and alert. Chart was reviewed Denies chest pain, SOB or palpitations - Current Medication List Current Medications: Active Medications Aspirin (Asa -) 81 mg PO DAILY [facility] Last Admin: 10/27/18 09:57 Dose: 81 mg Atorvastatin Calcium (Lipitor -) 20 mg PO HS [facility] Last Admin: 10/26/18 21:41 Dose: 20 mg Azithromycin (Zithromax -) 250 mg PO DAILY [facility] Stop: 10/28/18 10:01 Last Admin: 10/27/18 09:56 Dose: 250 mg Furosemide (Lasix -) 20 mg PO DAILY [facility] Last Admin: 10/27/18 10:51 Dose: 20 mg Ceftriaxone Sodium (Ceftriaxone 1 Gm-D5w Bag) 50 mls @ 100 mls/hr IVPB DAILY [facility] Last Admin: 10/27/18 09:56 Dose: 100 mls/hr Levothyroxine Sodium (Synthroid -) 25 mcg PO DAILY@0700 [facility] Last Admin: 10/27/18 07:03 Dose: 25 mcg Magnesium Oxide (Mag-Ox -) 400 mg PO BID [facility] Last Admin: 10/27/18 09:57 Dose: 400 mg Metoprolol Succinate (Toprol Xl -) 200 mg PO DAILY [facility] Last Admin: 10/27/18 10:52 Dose: 200 mg Sacubitril/Valsartan (Entresto 24 Mg-26 Mg Tablet) 1 tab PO BID [facility] Last Admin: 10/27/18 10:51 Dose: 1 tab Spironolactone (Aldactone -) 25 mg PO DAILY [facility] Last Admin: 10/27/18 10:51 Dose: 25 mg Venlafaxine HCl (Effexor -) 25 mg PO DAILY [facility] Last Admin: 10/27/18 09:57 Dose: 25 mg - Objective Vital Signs: Vital Signs Temperature 97.7 F 10/27/18 14:00 Pulse Rate 63 10/27/18 14:00 Respiratory Rate 17 10/27/18 14:00 Blood Pressure 113/73 10/27/18 14:00 O2 Sat by Pulse Oximetry (%) 96 10/27/18 14:00 Eyes: Yes: PERRL HENT: Yes: Atraumatic Neck: Yes: Supple Cardiovascular: Yes: Regular Rate and Rhythm, S1, S2 Respiratory: Yes: CTA Bilaterally Gastrointestinal: Yes: Normal Bowel Sounds, Soft. No: Tenderness Edema: No Additional Findings/Remarks: - Review of Systems Constitutional: denies: Chills, Fever Cardiovascular: denies: Chest Pain, Palpitations, Shortness of Breath Respiratory: denies: Cough, Hemoptysis, Orthopnea, PND, SOB, SOB on Exertion Gastrointestinal: denies: Abdominal Pain, Constipation, Diarrhea, Melena, Nausea , Rectal Bleeding, Vomiting Musculoskeletal: denies Joint Pain Neurological: denies Headache. denies: Change in Speech, Confusion, Dizziness, Numbness, Seizure, Syncope, Unsteady Gait Labs: 10/27/18 07:20 Problem List - Problems (1) Systolic dysfunction Code(s): I51.9 - HEART DISEASE, UNSPECIFIED (2) CHF exacerbation Code(s): I50.9 - HEART FAILURE, UNSPECIFIED Qualifiers: Heart failure type: combined systolic and diastolic Qualified Code(s): I50.43 - Acute on chronic combined systolic (congestive) and diastolic ( congestive) heart failure (3) Hyperlipidemia Code(s): E78.5 - HYPERLIPIDEMIA, UNSPECIFIED Qualifiers: Hyperlipidemia type: pure hypercholesterolemia Qualified Code(s): E78.00 - Pure hypercholesterolemia, unspecified; E78.0 - Pure hypercholesterolemia (4) Hypertensive cardiomyopathy Code(s): I11.9 - HYPERTENSIVE HEART DISEASE WITHOUT HEART FAILURE; I43 - CARDIOMYOPATHY IN DISEASES CLASSIFIED ELSEWHERE Qualifiers: Heart failure presence: with heart failure Qualified Code(s): I11.0 - Hypertensive heart disease with heart failure; I43 - Cardiomyopathy in diseases classified elsewhere (5) Hypothyroidism Code(s): E03.9 - HYPOTHYROIDISM, UNSPECIFIED (6) Left bundle branch block (LBBB) Code(s): I44.7 - LEFT BUNDLE-BRANCH BLOCK, UNSPECIFIED (7) Subendocardial ischemia Code(s): I24.8 - OTHER FORMS OF ACUTE ISCHEMIC HEART DISEASE Assessment/Plan 1. Acute on chronic LV diastolic/systolic heart failure 2. Hypertensive heart disease 3. Hyperlipidemia 4. Subendocardial ischemia 5. Left bundle branch block 6. Abnormal TSH suggestive of hypothyroidism PLAN: 1. Oral diuresis with monitoring renal function and electrolytes 2. Trend troponin (down trending) 2. Continue ASA 81 mg QD, Toprol XL 200 mg QD, Lipitor 20 mg QHS, Entresto 49/ 51 mg BID and Aldactone 25 mg QD with uptitration as hemodynamics tolerate 3. Ideally recommend right and left heart catheterization to establish etiology of cardiomyopathy, LifeVest and consideration for ANSWERING SERVICE TELEPHONE OPERATOR-D once euvolemic, but patient is reluctant and agrees only to medical therapy for now Further plans are to follow Roberto Sutton MD
[2018-10-27] MEDS: ATORVASTATIN CA 20 MG TABLET (FP) PO SCH (21:37)
[2018-10-28] MEDS: LEVOTHYROXINE NA 25 MCG TABLET (FP) PO SCH (06:43)
[2018-10-28 09:32] LABS: ALBUMIN 2.3 g/dl (3.4-5.0); BILIRUBIN,TOTAL 0.7 mg/dl (0.2-1); CALCIUM 7.9 mg/dl (8.5-10); CREATININE 0.6 mg/dl (0.55-1.3); MAGNESIUM 1.8 mg/dL (1.8-2.4); POTASSIUM 4.4 mmol/L (3.5-5.1); TOT PROT 5.4 g/dl (6.4-8.2)
[2018-10-28] MEDS ORDERED: PT OWN MED DRAWER 7, Y5N ONE (09:40)
[2018-10-28] MEDS: AZITHROMYCIN 250 MG TABLET PO SCH (10:14)
[2018-10-28] MEDS: MAGNESIUM OXIDE 400 MG TABLET (FP) PO SCH ×2 (10:14→21:47)
[2018-10-28] MEDS: FUROSEMIDE 20 MG TABLET (FP) PO SCH (10:14)
[2018-10-28] MEDS: SPIRONOLACTONE 25 MG TABLET (FP) PO SCH (10:14)
[2018-10-28] MEDS: ASPIRIN 81 MG CHEWABLE TABLETS PO SCH (10:14)
[2018-10-28] MEDS: CEFTRIAXONE 1 G/50 ML PREMIX 50 ML IVPB SCH (10:14)
[2018-10-28] MEDS: VENLAFAXINE HCL 25 MG TABLET PO SCH (10:15)
[2018-10-28] MEDS: SACUBITRIL/VALSARTAN 24 MG-26 MG TABLET PO SCH (10:15)
--- NOTE | 2018-10-28 15:58 | PN ---
Progress Note, Physician Chief Complaint: Events noted Not in distress History of Present Illness: Patient was seen and examined. Awake and alert. Chart was reviewed Denies chest pain, SOB or palpitations - Current Medication List Current Medications: Active Medications Aspirin (Asa -) 81 mg PO DAILY [facility] Last Admin: 10/28/18 10:14 Dose: 81 mg Atorvastatin Calcium (Lipitor -) 20 mg PO HS [facility] Last Admin: 10/27/18 21:37 Dose: 20 mg Furosemide (Lasix -) 20 mg PO DAILY [facility] Last Admin: 10/28/18 10:14 Dose: 20 mg Ceftriaxone Sodium (Ceftriaxone 1 Gm-D5w Bag) 50 mls @ 100 mls/hr IVPB DAILY [facility] Last Admin: 10/28/18 10:14 Dose: 100 mls/hr Levothyroxine Sodium (Synthroid -) 25 mcg PO DAILY@0700 [facility] Last Admin: 10/28/18 06:43 Dose: 25 mcg Magnesium Oxide (Mag-Ox -) 400 mg PO BID [facility] Last Admin: 10/28/18 10:14 Dose: 400 mg Metoprolol Succinate (Toprol Xl -) 200 mg PO DAILY [facility] Last Admin: 10/28/18 10:13 Dose: 200 mg Sacubitril/Valsartan (Entresto 24 Mg-26 Mg Tablet) 1 tab PO BID [facility] Last Admin: 10/28/18 10:15 Dose: 1 tab Spironolactone (Aldactone -) 25 mg PO DAILY [facility] Last Admin: 10/28/18 10:14 Dose: 25 mg Venlafaxine HCl (Effexor -) 25 mg PO DAILY [facility] Last Admin: 10/28/18 10:15 Dose: 25 mg - Objective Vital Signs: Vital Signs Temperature 98.6 F 10/28/18 14:00 Pulse Rate 60 10/28/18 14:00 Respiratory Rate 17 10/28/18 14:00 Blood Pressure 130/75 10/28/18 14:00 O2 Sat by Pulse Oximetry (%) 95 10/28/18 14:00 Eyes: Yes: PERRL HENT: Yes: Atraumatic Neck: Yes: Supple Cardiovascular: Yes: Regular Rate and Rhythm, S1, S2 Respiratory: Yes: CTA Bilaterally Gastrointestinal: Yes: Normal Bowel Sounds, Soft. No: Tenderness Edema: No Additional Findings/Remarks: - Review of Systems Constitutional: denies: Chills, Fever Cardiovascular: denies: Chest Pain, Palpitations, Shortness of Breath Respiratory: denies: Cough, Hemoptysis, Orthopnea, PND, SOB, SOB on Exertion Gastrointestinal: denies: Abdominal Pain, Constipation, Diarrhea, Melena, Nausea , Rectal Bleeding, Vomiting Musculoskeletal: denies Joint Pain Neurological: denies Headache. denies: Change in Speech, Confusion, Dizziness, Numbness, Seizure, Syncope, Unsteady Gait Labs: 10/28/18 08:00 Problem List - Problems (1) Systolic dysfunction Code(s): I51.9 - HEART DISEASE, UNSPECIFIED (2) CHF exacerbation Code(s): I50.9 - HEART FAILURE, UNSPECIFIED Qualifiers: Heart failure type: combined systolic and diastolic Qualified Code(s): I50.43 - Acute on chronic combined systolic (congestive) and diastolic ( congestive) heart failure (3) Hyperlipidemia Code(s): E78.5 - HYPERLIPIDEMIA, UNSPECIFIED Qualifiers: Hyperlipidemia type: pure hypercholesterolemia Qualified Code(s): E78.00 - Pure hypercholesterolemia, unspecified; E78.0 - Pure hypercholesterolemia (4) Hypertensive cardiomyopathy Code(s): I11.9 - HYPERTENSIVE HEART DISEASE WITHOUT HEART FAILURE; I43 - CARDIOMYOPATHY IN DISEASES CLASSIFIED ELSEWHERE Qualifiers: Heart failure presence: with heart failure Qualified Code(s): I11.0 - Hypertensive heart disease with heart failure; I43 - Cardiomyopathy in diseases classified elsewhere (5) Hypothyroidism Code(s): E03.9 - HYPOTHYROIDISM, UNSPECIFIED (6) Left bundle branch block (LBBB) Code(s): I44.7 - LEFT BUNDLE-BRANCH BLOCK, UNSPECIFIED (7) Subendocardial ischemia Code(s): I24.8 - OTHER FORMS OF ACUTE ISCHEMIC HEART DISEASE Assessment/Plan 1. Acute on chronic LV diastolic/systolic heart failure 2. Hypertensive heart disease 3. Hyperlipidemia 4. Subendocardial ischemia 5. Left bundle branch block 6. Abnormal TSH suggestive of hypothyroidism PLAN: 1. Oral diuresis with monitoring renal function and electrolytes 2. Trend troponin (down trending) 2. Continue ASA 81 mg QD, Toprol XL 200 mg QD, Lipitor 20 mg QHS, Entresto 49/ 51 mg BID and Aldactone 25 mg QD with uptitration as hemodynamics tolerate 3. Ideally recommended right and left heart catheterization to establish etiology of cardiomyopathy, LifeVest and consideration for CHAPTER RELATIONS ADMINISTRATOR-D once euvolemic , but patient is reluctant and agrees only to medical therapy as stated previously Further plans are to follow Roberto Sutton MD
--- NOTE | 2018-10-28 19:34 | PN ---
Progress Note, Physician Chief Complaint: edema decreased,was able to ambulate feels better suspicious and asking if she is in a hospital, if we are giving her "drugs" or if we are "experimenting on her", and if we have "experience" with patients; concerned she "may be in a fci", otherwise pleasant History of Present Illness: 83 yo female admitted for edema of the lower extremities, inability to walk due to weakness and fall at the assisted living facility. PAtient had minimal elevation of her cardiac enzymes without new EKG changes. Edema improved with the administration of Lasix iv. PAtient is still very weak and has poor appetite. The CxR showed right mid lobe infiltrate. Today there is no shortness of breath, edema improved considerably with diuresis and the patient was able to ambulate with assistance for a few steps. - Current Medication List Current Medications: Active Medications Aspirin (Asa -) 81 mg PO DAILY [facility] Last Admin: 10/28/18 10:14 Dose: 81 mg Atorvastatin Calcium (Lipitor -) 20 mg PO HS [facility] Last Admin: 10/27/18 21:37 Dose: 20 mg Furosemide (Lasix -) 20 mg PO DAILY [facility] Last Admin: 10/28/18 10:14 Dose: 20 mg Ceftriaxone Sodium (Ceftriaxone 1 Gm-D5w Bag) 50 mls @ 100 mls/hr IVPB DAILY [facility] Last Admin: 10/28/18 10:14 Dose: 100 mls/hr Levothyroxine Sodium (Synthroid -) 25 mcg PO DAILY@0700 [facility] Last Admin: 10/28/18 06:43 Dose: 25 mcg Magnesium Oxide (Mag-Ox -) 400 mg PO BID [facility] Last Admin: 10/28/18 10:14 Dose: 400 mg Metoprolol Succinate (Toprol Xl -) 200 mg PO DAILY [facility] Last Admin: 10/28/18 10:13 Dose: 200 mg Sacubitril/Valsartan (Entresto 49 Mg-51 Mg Tablet) 1 tab PO BID [facility] Spironolactone (Aldactone -) 25 mg PO DAILY [facility] Last Admin: 10/28/18 10:14 Dose: 25 mg Venlafaxine HCl (Effexor -) 25 mg PO DAILY [facility] Last Admin: 10/28/18 10:15 Dose: 25 mg - Objective Vital Signs: Vital Signs Temperature 97.9 F 10/28/18 18:00 Pulse Rate 58 L 10/28/18 18:00 Respiratory Rate 19 10/28/18 18:00 Blood Pressure 130/54 L 10/28/18 18:00 O2 Sat by Pulse Oximetry (%) 97 10/28/18 18:00 Constitutional: Yes: No Distress, Calm Eyes: Yes: Conjunctiva Clear, EOM Intact HENT: Yes: Atraumatic, Normocephalic Neck: Yes: Supple, Trachea Midline Cardiovascular: Yes: Regular Rate and Rhythm, S1, S2 Respiratory: Yes: Regular, CTA Bilaterally Gastrointestinal: Yes: Normal Bowel Sounds, Soft Edema: No Neurological: Yes: Alert, Oriented Psychiatric: Yes: Alert, Oriented Labs: CBC, BMP 10/24/18 10:20 10/28/18 08:00 Problem List - Problems (1) Hypotension Assessment/Plan: pn Lasix po decreased Entresto to 24/26mg po bid and tolerated it well Code(s): I95.9 - HYPOTENSION, UNSPECIFIED (2) CHF exacerbation Assessment/Plan: LAsix 20 mg po daily was given in the morning ECHO showing systolic and diastolic failure started on Entresto bid Code(s): I50.9 - HEART FAILURE, UNSPECIFIED Qualifiers: Heart failure type: combined systolic and diastolic Qualified Code(s): I50.43 - Acute on chronic combined systolic (congestive) and diastolic ( congestive) heart failure (3) Left bundle branch block (LBBB) Assessment/Plan: PRE EXISTENT AND NOT A NEW EVENT Code(s): I44.7 - LEFT BUNDLE-BRANCH BLOCK, UNSPECIFIED (4) Pneumonia Assessment/Plan: the radiological image present in the right hilum could be the related to the respiratory symptoms patient had 1 month ago and for which she was treated at this time there is no cough or chest pain Ceftriaxone 1 gm daily plus Zithromax were started Code(s): J18.9 - PNEUMONIA, UNSPECIFIED ORGANISM (5) Cellulitis of lower extremity Assessment/Plan: on Ceftriaxone LAsix 20 mg po daily Code(s): L03.119 - CELLULITIS OF UNSPECIFIED PART OF LIMB Qualifiers: Laterality: unspecified laterality Qualified Code(s): L03.119 - Cellulitis of unspecified part of limb (6) Pressure ulcer Assessment/Plan: stage 2, Alevyn applications and Jody Guard as needed Code(s): L89.90 - PRESSURE ULCER OF UNSPECIFIED SITE, UNSPECIFIED STAGE Qualifiers: Pressure injury location: buttock Pressure injury stage: stage 2 Laterality: unspecified laterality Qualified Code(s): L89.302 - Pressure ulcer of unspecified buttock, stage 2 (7) Hypothyroidism Assessment/Plan: started Synthroid Code(s): E03.9 - HYPOTHYROIDISM, UNSPECIFIED
[2018-10-28] MEDS: SACUBITRIL/VALSARTAN 49 MG-51 MG TABLET PO SCH (21:47)
[2018-10-28] MEDS: ATORVASTATIN CA 20 MG TABLET (FP) PO SCH (21:47)
[2018-10-29] MEDS: LEVOTHYROXINE NA 25 MCG TABLET (FP) PO SCH (06:36)
[2018-10-29] MEDS: SPIRONOLACTONE 25 MG TABLET (FP) PO SCH (09:44)
[2018-10-29] MEDS ORDERED: PT OWN MED DRAWER 7, Y5N ONE (09:47)
[2018-10-29] MEDS: ASPIRIN 81 MG CHEWABLE TABLETS PO SCH (09:50)
[2018-10-29] MEDS: CEFTRIAXONE 1 G/50 ML PREMIX 50 ML IVPB SCH (09:51)
[2018-10-29] MEDS: SACUBITRIL/VALSARTAN 49 MG-51 MG TABLET PO SCH (09:51)
[2018-10-29] MEDS: FUROSEMIDE 20 MG TABLET (FP) PO SCH (09:51)
[2018-10-29] MEDS: VENLAFAXINE HCL 25 MG TABLET PO SCH (09:52)
[2018-10-29] MEDS: MAGNESIUM OXIDE 400 MG TABLET (FP) PO SCH (09:52)
--- NOTE | 2018-10-29 12:06 | PN ---
Progress Note, Physician History of Present Illness: Bilateral lower extremity swelling resolved with diuresis. Denies chest pain, dyspnea, orthopnea, PND, near or true syncope or palpitations. OOB to chair comfortable. - Current Medication List Current Medications: Active Medications Aspirin (Asa -) 81 mg PO DAILY [facility] Last Admin: 10/29/18 09:50 Dose: 81 mg Atorvastatin Calcium (Lipitor -) 20 mg PO HS [facility] Last Admin: 10/28/18 21:47 Dose: 20 mg Furosemide (Lasix -) 20 mg PO DAILY [facility] Last Admin: 10/29/18 09:51 Dose: 20 mg Ceftriaxone Sodium (Ceftriaxone 1 Gm-D5w Bag) 50 mls @ 100 mls/hr IVPB DAILY [facility] Last Admin: 10/29/18 09:51 Dose: 100 mls/hr Levothyroxine Sodium (Synthroid -) 25 mcg PO DAILY@0700 [facility] Last Admin: 10/29/18 06:36 Dose: 25 mcg Magnesium Oxide (Mag-Ox -) 400 mg PO BID [facility] Last Admin: 10/29/18 09:52 Dose: 400 mg Metoprolol Succinate (Toprol Xl -) 200 mg PO DAILY [facility] Last Admin: 10/29/18 09:52 Dose: 200 mg Sacubitril/Valsartan (Entresto 49 Mg-51 Mg Tablet) 1 tab PO BID [facility] Last Admin: 10/29/18 09:51 Dose: 1 tab Spironolactone (Aldactone -) 25 mg PO DAILY [facility] Last Admin: 10/29/18 09:44 Dose: 25 mg Venlafaxine HCl (Effexor -) 25 mg PO DAILY [facility] Last Admin: 10/29/18 09:52 Dose: 25 mg - Objective Vital Signs: Vital Signs Temperature 97.5 F L 10/29/18 06:34 Pulse Rate 60 10/29/18 06:34 Respiratory Rate 18 10/29/18 06:34 Blood Pressure 134/73 10/29/18 06:34 O2 Sat by Pulse Oximetry (%) 94 L 10/29/18 06:34 Constitutional: Yes: No Distress, Calm, Thin Neck: Yes: Supple Cardiovascular: Yes: Regular Rate and Rhythm Respiratory: Yes: Regular, Diminished Gastrointestinal: Yes: Normal Bowel Sounds, Soft Edema: No Labs: CBC, BMP 10/24/18 10:20 08/04/19 08:00 Problem List - Problems (1) Hyperlipidemia Code(s): E78.5 - HYPERLIPIDEMIA, UNSPECIFIED Qualifiers: Hyperlipidemia type: pure hypercholesterolemia Qualified Code(s): E78.00 - Pure hypercholesterolemia, unspecified; E78.0 - Pure hypercholesterolemia (2) Subendocardial ischemia Code(s): I24.8 - OTHER FORMS OF ACUTE ISCHEMIC HEART DISEASE (3) Left bundle branch block (LBBB) Code(s): I44.7 - LEFT BUNDLE-BRANCH BLOCK, UNSPECIFIED (4) CHF exacerbation Code(s): I50.9 - HEART FAILURE, UNSPECIFIED Qualifiers: Heart failure type: combined systolic and diastolic Qualified Code(s): I50.43 - Acute on chronic combined systolic (congestive) and diastolic ( congestive) heart failure (5) Hypertensive cardiomyopathy Code(s): I11.9 - HYPERTENSIVE HEART DISEASE WITHOUT HEART FAILURE; I43 - CARDIOMYOPATHY IN DISEASES CLASSIFIED ELSEWHERE Qualifiers: Heart failure presence: with heart failure Qualified Code(s): I11.0 - Hypertensive heart disease with heart failure; I43 - Cardiomyopathy in diseases classified elsewhere Assessment/Plan 10/24/2018 Echocardiogram: Normal LV size with severe decreased LVED 20-25%, normal RV size and fxn, mild LINDA, mod MR, mild TR RVSP 40-50 mmHg, tr-mild AR, mod MG 18 mmHg, tr SC 1. Acute on chronic LV diastolic/systolic heart failure resolving 2. Hypertensive heart disease 3. Hyperlipidemia 4. Subendocardial ischemia 5. Left bundle branch block 6. Abnormal TSH suggestive of sick euthyroid 7. E. coli UTI P 1: Lasix 20 qd with monitor diuretic response, renal fxn and electrolytes, trops downtrending, complete abx course 2. Continue ASA 81 qd, Toprol XL 200 qd, Lipitor 20 qhs, Entresto 49/51 bid, and Aldactone 25 qd with uptitration as hemodynamics tolerate 3. Replete K>4.0 and Mg>2.0 4. Ideally recommended right and left heart catheterization to establish etiology of cardiomyopathy, LifeVest and consideration for BINDERY MACHINE OPERATOR-D once euvolemic , but patient is reluctant and agrees only to medical therapy as stated previously after discussion of risks and benefits, will readdress at a later date in office
[2018-10-29 14:03] VITALS: BP 113/56; PULSE 71; TEMP 97.8
--- NOTE | 2018-10-29 15:28 | DS ---
Physical Examination Vital Signs: Vital Signs Temperature 97.8 F 10/29/18 14:02 Pulse Rate 71 10/29/18 14:02 Respiratory Rate 16 10/29/18 14:02 Blood Pressure 113/56 L 10/29/18 14:02 O2 Sat by Pulse Oximetry (%) 97 10/29/18 14:02 Constitutional: Yes: No Distress, Calm Eyes: Yes: Conjunctiva Clear, EOM Intact HENT: Yes: Atraumatic, Normocephalic Neck: Yes: Supple, Trachea Midline Cardiovascular: Yes: Regular Rate and Rhythm, S1, S2 Respiratory: Yes: Regular, CTA Bilaterally Gastrointestinal: Yes: Normal Bowel Sounds, Soft. No: Hepatomegaly, Splenomegaly Renal/: Yes: WNL Breast(s): Yes: WNL Musculoskeletal: Yes: WNL Extremities: No: Calf Tenderness Edema: No Peripheral Pulses WNL: Yes Integumentary: Yes: Erythema, Venous Stasis Changes Neurological: Yes: Alert, Oriented Psychiatric: Yes: Alert, Oriented Labs: CBC, BMP 10/24/18 10:20 10/28/18 08:00 Discharge Summary Reason For Visit: ACUTE ON CHRONIC CONGESTIVE HEART FAILURE Current Active Problems CHF exacerbation (Acute) Cellulitis of lower extremity (Acute) Hyperlipidemia (Acute) Hypertensive cardiomyopathy (Acute) Hypotension (Acute) Hypothyroidism (Acute) Left bundle branch block (LBBB) (Acute) Pneumonia (Acute) Pressure ulcer (Acute) Subendocardial ischemia (Acute) Systolic dysfunction (Acute) Hospital Course: Patient admitted with CHF exacerbation increased edema of the lower extremities. Patient developed weakness and inability to walk and was admitted for evaluation. Cesar vee was find to have elevated cardiac enzymes. A CXR demonstrated right parahilar infiltrate for which she received iv antibiotics. She will have to continue with PO Zithromax 25 mg daily for 7 more days. Her cardiac medications were changed and she was started on Entresto. Her ECHO showed systolic and diastolic insufficiency. Patient has a stage 2 pressure ulcer for which she will receive as needed Desiitin Condition: Stable - Instructions Disposition: [facility] - Home Medications Comprehensive Discharge Medication List: Ambulatory Orders Aspirin [Aspirin EC] 81 mg PO DAILY 10/24/18 Cholecalciferol (Vitamin D3) [Vitamin D3] 2,000 unit PO DAILY 10/24/18 Metoprolol Succinate [Toprol Xl] 200 mg PO DAILY 10/24/18 Simvastatin 20 mg PO DAILY 10/24/18 Aspirin [ASA -] 81 mg PO DAILY tab.chew 10/29/18 Azithromycin [Zithromax 250mg Tablets -] 250 mg PO DAILY 7 Days #7 tablet Furosemide [Lasix -] 20 mg PO DAILY tablet 10/29/18 Levothyroxine [Synthroid -] 25 mcg PO DAILY@0700 tablet 10/29/18 Magnesium Oxide [Mag-Ox -] 400 mg PO BID tablet 10/29/18 Metoprolol Succinate [Toprol XL -] 200 mg PO DAILY tab.sr.24h 10/29/18 Sacubitril/Valsartan [Entresto 49 mg-51 mg Tablet] 1 tab PO BID tablet Spironolactone [Aldactone -] 25 mg PO DAILY tablet 10/29/18 Venlafaxine HCl [Effexor -] 25 mg PO DAILY tablet 10/29/18
[2018-10-29 15:50] VITALS: BMI 19.8
== END 2018-10-29 16:15 | DRG 291 ==
LOC: FER 09:28 → FM/S 13:30
PROVIDERS: ADMIT Internal Medicine; ATTEND Internal Medicine
DX: I11.0 Hypertensive heart disease with heart failure (principal); J18.9 Pneumonia, unspecified organism; I24.8 Other forms of acute ischemic heart disease; I50.43 Acute on chronic combined systolic (congestive) and diastolic (congestive) heart failure; I44.7 Left bundle-branch block, unspecified; E78.5 Hyperlipidemia, unspecified; I95.9 Hypotension, unspecified; E03.9 Hypothyroidism, unspecified; L89.302 Pressure ulcer of unspecified buttock, stage 2; L89.322 Pressure ulcer of left buttock, stage 2; L89.312 Pressure ulcer of right buttock, stage 2; Z87.891 Personal history of nicotine dependence
CPT/HCPCS: 36415; 71045-TC-FY; 71046-TC-FY; 80048; 80053; 80061; 81003; 81015; 82550; 82553; 83605; 83735; 83880; 84436; 84439; 84443; 84480; 84481; 84484; 85025; 87040; 87086; 87186; 93005; 93306-TC; 97116-GP; 97161-GP; 99283-25

== ENCOUNTER 2019-02-18 17:09 | Inpatient (IN) | payer OTHER, MEDICARE ==
[2019-02-18 18:43] LABS: BASO % 0.6 % (0-2.0); EOS % 0.3 % (0-4.5); HEMATOCRIT 41.5 % (32.4-45.2); HEMOGLOBIN 13.5 GM/dl (10.7-15.3); LYMPH % 14.4 % (8-40); MCH 29.5 pg (25.7-33.7); MCHC 32.6 g/dl (32.0-36.0); MEAN CELL VOLUME 90.5 fl (80-96); MEAN PLT VOLUME 8.2 fl (7.5-11.1); MONO % 9.4 % (3.8-10.2); NEUT % 75.3 % (42.8-82.8); PLATELET COUNT 217 K/MM3 (134-434); RBC 4.58 M/mm3 (3.60-5.2); RDW 16.8 % (11.6-15.6); WHITE BLOOD COUNT 5.8 K/mm3 (4.0-10.8)
--- NOTE | 2019-02-18 19:06 | PDOC ---
Documentation entered by Odilon Huddleston SCRIBE, acting as scribe for Ben Leggett MD. Ben Leggett MD: This documentation has been prepared by the Flaquito tobias Aiswarya, SCRIBE, under my direction and personally reviewed by me in its entirety. I confirm that the documentation accurately reflects all work, treatment, procedures, and medical decision making performed by me. History of Present Illness - General Chief Complaint: Injury Stated Complaint: FALL,RIGHT HIP PAIN History Source: Patient Exam Limitations: No Limitations - History of Present Illness Initial Comments: 02/18/19 18:47 The patient is a 83 year old female, with a significant PMH of CHF, HTN and HLD , who presents to the emergency department via EMS from [facility], for evaluation of a fall that occurred today. Per EMS report, patient was found on the floor secondary to a unwitnessed fall. Patient currently reports left hip tenderness on palpation and came to the ER for further evaluation. Denies losing consciousness, vision changes, head trauma, or neurological deficit. Denies numbness or tingling. Denies chest pain, shortness of breath, headache and dizziness. Denies fever, chills, nausea, vomit, diarrhea and constipation. Allergies: NKDA Past surgical history: None reported Social history: None reported PCP: None reported Past History - Past Medical History Allergies/Adverse Reactions: Allergies Allergy/AdvReac Type Severity Reaction Status Date / Time No Known Allergies Allergy Verified 02/18/19 17:14 Home Medications: Ambulatory Orders Metoprolol Succinate [Toprol Xl] 200 mg PO DAILY 10/24/18 Simvastatin 20 mg PO DAILY 10/24/18 Aspirin [ASA -] 81 mg PO DAILY tab.chew 10/29/18 Magnesium Oxide [Mag-Ox -] 400 mg PO BID tablet 10/29/18 Spironolactone [Aldactone -] 25 mg PO DAILY tablet 10/29/18 Venlafaxine HCl [Effexor -] 25 mg PO DAILY tablet 10/29/18 Levothyroxine [Synthroid -] 50 mcg PO DAILY@0700 02/18/19 Sacubitril/Valsartan [Entresto 49 mg-51 mg Tablet] 1 each PO BID 02/18/19 COPD: No CHF: Yes HTN: Yes Hypercholesterolemia: Yes - Psycho Social/Smoking Cessation Hx Smoking History: Former smoker Have you smoked in the past 12 months: No If you are a former smoker, when did you quit?: 40 years Hx Alcohol Use: No Drug/Substance Use Hx: No Review of Systems - Review of Systems Able to Perform ROS?: Yes Comments:: 02/18/19 18:48 A complete review of 10 out of 10 review of systems is taken and is negative apart from what is previously mentioned below and in the HPI. *Physical Exam - Vital Signs Last Vital Signs Temp Pulse Resp BP Pulse Ox 97.7 F 70 19 150/81 94 L 02/18/19 17:11 02/18/19 17:11 02/18/19 17:11 02/18/19 17:11 02/18/19 17:11 - Physical Exam Comments: 02/18/19 18:48 Vitals: Triage Vital signs reviewed General Appearance: no acute distress, well nourished well developed, Head: Atraumatic, normocephalic Chest Wall: Nontender Cardiac: Regular rate and rhythm, no murmurs, no rubs, no gallops, Lungs: Clear to auscultation bilateral, good air movement bilaterally, Extremities: +tenderness on palpation of the left hip. Skin: Warm and dry, no rashes or lesions, no petechiae Neuro: AOX3; Cranial Nerves 2-12 grossly c intact, Strength intact to all extremities, Sensation intact to all extremities, Psych: normal mood, normal affect ED Treatment Course - LABORATORY CBC & Chemistry Diagram: 02/18/19 18:30 02/18/19 18:30 - ADDITIONAL ORDERS Additional order review: 02/18/19 18:30 RBC 4.58 MCV 90.5 MCHC 32.6 RDW 16.8 H MPV 8.2 Neutrophils % 75.3 Lymphocytes % 14.4 Monocytes % 9.4 Eosinophils % 0.3 Basophils % 0.6 - RADIOLOGY Radiology Studies Ordered: Category Date Time Status CXRPORT [CHEST X-RAY PORTABLE*] [RAD] Stat Radiology 02/18/19 17:57 Ordered HIP & PELVIS-LEFT [RAD] Stat Radiology 02/18/19 18:07 Ordered Medical Decision Making - Medical Decision Making 02/18/19 19:05 83 years old status post mechanical fall onto left hip. We will check labs x-ray and reevaluate Dr. Carlin is to follow-up x-ray and reassess patient. Discharge - Discharge Information Problems reviewed: Yes Clinical Impression/Diagnosis: Hip pain Qualifiers: Laterality: left Qualified Code(s): M25.552 - Pain in left hip Condition: Fair - Follow up/Referral - Patient Discharge Instructions - Post Discharge Activity
[2019-02-18 19:10] LABS: ALBUMIN 2.9 g/dl (3.4-5.0); BILIRUBIN,TOTAL 1.6 mg/dl (0.2-1); CALCIUM 8.1 mg/dl (8.5-10); CREATININE 0.7 mg/dl (0.55-1.3); TOT PROT 6.1 g/dl (6.4-8.2)
[2019-02-18 19:12] LABS: POTASSIUM 5.1 mmol/L (3.5-5.1)
--- NOTE | 2019-02-18 20:03 | PDOC ---
*Physical Exam - Vital Signs Last Vital Signs Temp Pulse Resp BP Pulse Ox 97.7 F 70 19 150/81 94 L 02/18/19 17:11 02/18/19 17:11 02/18/19 17:11 02/18/19 17:11 02/18/19 17:11 ED Treatment Course - LABORATORY CBC & Chemistry Diagram: 02/18/19 18:30 02/18/19 18:30 - ADDITIONAL ORDERS Additional order review: Laboratory Results 02/18/19 02/18/19 18:30 18:08 Sodium 135 L Potassium 5.1 Chloride 98 Carbon Dioxide 28 Anion Gap 9 BUN 19.0 H Creatinine 0.7 Est GFR (CKD-EPI)AfAm 93.52 Est GFR (CKD-EPI)NonAf 80.69 Random Glucose 101 Calcium 8.1 L Total Bilirubin 1.6 H AST 30 ALT 15 Alkaline Phosphatase 121 H Total Protein 6.1 L Albumin 2.9 L Urine Color Cancelled Urine Appearance Cancelled Urine pH Cancelled Urine Protein Cancelled Urine Glucose (UA) Cancelled Urine Ketones Cancelled Urine Blood Cancelled Urine Nitrite Cancelled Urine Bilirubin Cancelled Urine Urobilinogen Cancelled Ur Leukocyte Esterase Cancelled 02/18/19 18:30 RBC 4.58 MCV 90.5 MCHC 32.6 RDW 16.8 H MPV 8.2 Neutrophils % 75.3 Lymphocytes % 14.4 Monocytes % 9.4 Eosinophils % 0.3 Basophils % 0.6 ED Progress Note - Progress Note Progress Note: Care of this patient received from Dr. Leggett. Plain film of the left hip (s/p THR) appears to have cortical discontinuity along the contour of the greater tuberosity. Image discussed with Dr. Eduardo of the radiology staff: CT of the left hip suggested to further elucidate this area. Noncontrast head CT was also planned because patient stated that she might have hit her head when she fell. Interpretation of the CT by Dr. Eduardo: Acute appearing fracture involving the greater trochanter of the left hip, mildly distracted no other acute abnormality seen on hip CT. Noncontrast head CT normal except for linear horizontal high attenuation focus 0.7 cm within the left frontoparietal montero radiata of questionable significance. Correlation with 6 to 12-hour follow-up CT suggested. Radiology images discussed with patient's PMD, Dr. Juares who will admit the patient with orthopedic consult (Dr. Groves). Laboratory evaluation previously performed: Essentially normal CBC; evidence of mild prerenal azotemia on chemistry profile with slightly elevated random glucose and mildly elevated alkaline phosphatase. Discharge - Discharge Information Problems reviewed: Yes Clinical Impression/Diagnosis: Fracture of left hip Qualifiers: Encounter type: initial encounter Fracture type: closed Qualified Code(s): S72.002A - Fracture of unspecified part of neck of left femur, initial encounter for closed fracture Condition: Fair - Admission Yes - Follow up/Referral - Patient Discharge Instructions - Post Discharge Activity
[2019-02-18 23:01] VITALS: BMI 22.6
--- NOTE | 2019-02-19 09:13 | HP ---
Admitting History and Physical - Admission Chief Complaint: s/p fall History of Present Illness: Patient with h/o CHF and fall 2 days ago , came in complaining of left thigh pain when standing up or walking. SHe states that she fell while she was trying to open the refrigerator door. She does not recall if she hit her head. There are no otehr complaints. She lives in an [facility] , ambulates with a walker. History Source: Patient, Caregiver Limitations to Obtaining History: Poor Historian - Past Medical History Gastrointestinal: Yes: Constipation Reproductive: Yes: Postmenopausal ...: No Musculoskeletal: Yes: Osteoarthritis Endocrine: Yes: Hypothyroidism, Osteopenia Dermatology: Yes: Cellulitis - Past Surgical History Past Surgical History: Yes: Joint Replacement (left hip) - Smoking History Smoking history: Former smoker Have you smoked in the past 12 months: No If you are a former smoker, when did you quit?: 40 years - Alcohol/Substance Use Hx Alcohol Use: No - Social History Usual Living Arrangement: Yes: Assisted Living Home Medications - Allergies Allergies/Adverse Reactions: Allergies Allergy/AdvReac Type Severity Reaction Status Date / Time No Known Allergies Allergy Verified 02/18/19 17:14 - Home Medications Home Medications: Ambulatory Orders Metoprolol Succinate [Toprol Xl] 200 mg PO DAILY 10/24/18 Simvastatin 20 mg PO DAILY 10/24/18 Aspirin [ASA -] 81 mg PO DAILY tab.chew 10/29/18 Magnesium Oxide [Mag-Ox -] 400 mg PO BID tablet 10/29/18 Spironolactone [Aldactone -] 25 mg PO DAILY tablet 10/29/18 Venlafaxine HCl [Effexor -] 25 mg PO DAILY tablet 10/29/18 Levothyroxine [Synthroid -] 50 mcg PO DAILY@0700 02/18/19 Sacubitril/Valsartan [Entresto 49 mg-51 mg Tablet] 1 each PO BID 02/18/19 Review of Systems - Review of Systems Constitutional: reports: No Symptoms Eyes: reports: No Symptoms HENT: reports: No Symptoms Neck: reports: No Symptoms Cardiovascular: reports: Edema Respiratory: reports: No Symptoms Gastrointestinal: reports: No Symptoms Genitourinary: reports: Frequency Musculoskeletal: reports: Joint Pain (left hip) Neurological: reports: No Symptoms Psychiatric: reports: Depression Physical Examination Vital Signs: Vital Signs Temperature 98 F 02/19/19 06:00 Pulse Rate 60 02/19/19 06:00 Respiratory Rate 18 02/19/19 08:25 Blood Pressure 134/70 02/19/19 06:00 O2 Sat by Pulse Oximetry (%) 94 L 02/19/19 08:25 Labs: CBC, BMP 02/18/19 18:30 02/18/19 18:30 Problem List - Problems (1) Fracture of left hip Assessment/Plan: awaiting for Ortho requires a repeat Ct of head post fall for medical clearance Code(s): S72.002A - FRACTURE OF UNSP PART OF NECK OF LEFT FEMUR, INIT Qualifiers: Encounter type: initial encounter Fracture type: closed Qualified Code(s) : S72.002A - Fracture of unspecified part of neck of left femur, initial encounter for closed fracture (2) CHF exacerbation Code(s): I50.9 - HEART FAILURE, UNSPECIFIED Qualifiers: (3) Hypothyroidism Assessment/Plan: dose has to be adjusted, there is MPZ infiltration of the tissue Code(s): E03.9 - HYPOTHYROIDISM, UNSPECIFIED
[2019-02-19] MEDS ORDERED: DEXTROSE 5%-0.45% SALINE 1,000 ML IV SCH (09:30)
[2019-02-19] MEDS: SPIRONOLACTONE 25 MG TABLET (FP) PO SCH (10:10)
[2019-02-19] MEDS: SACUBITRIL/VALSARTAN 97 MG-103 MG TABLET PO SCH ×2 (10:10→21:32)
[2019-02-19] MEDS ORDERED: PT OWN MED DRAWER 7, Y5N ONE ×3 (12:12→21:26)
--- NOTE | 2019-02-19 12:19 | CON.CARD ---
Consult Consult Specialty:: Cardiology Referred by:: Dr. Deepti Juares Reason for Consultation:: Cardiac evaluation - History of Present Illness Chief Complaint: Post fall resulting in left hip fracture (with previous hip repair) History of Present Illness: Patient is an 83 year old female with underlying history of dilated cardiomyopathy, acute on chronic LV systolic dysfunction with class II NYHA heart failure, HTN, hypercholesterolemia, moderate MR and moderate who presents after a fall resulting in left hip fracture. Patient has been admitted during this past summer and was found to have severe LV systolic dysfunction with moderate , mild AR and moderate MR. She was recommended further cardiac work up including cardiac catheterization and also possible LifeVest, but she refused and instead had been medically managed. Currently, she denies chest pain , shortness of breath or palpitations. She denies paroxysmal nocturnal dyspnea or orthopnea. She denies fever or chills. She denies nausea, vomiting, diarrhea or abdominal pain. She denies headache or lightheadedness. - History Source History Provided By: Patient, Family Member, Medical Record Limitations to Obtaining History: No Limitations - Past Medical History Cardio/Vascular: Yes: Aortic Insufficiency, Aortic Stenosis, CHF, HTN, Hyperlipdemia, Mitral Insufficiency Endocrine: Yes: Hypothyroidism - Past Surgical History Past Surgical History: Yes: Joint Replacement - Alcohol/Substance Use Hx Alcohol Use: No - Smoking History Smoking history: Former smoker Have you smoked in the past 12 months: No If you are a former smoker, when did you quit?: 40 years Home Medications - Allergies Allergies/Adverse Reactions: Allergies Allergy/AdvReac Type Severity Reaction Status Date / Time No Known Allergies Allergy Verified 02/18/19 17:14 - Home Medications Home Medications: Ambulatory Orders Metoprolol Succinate [Toprol Xl] 200 mg PO DAILY 10/24/18 Simvastatin 20 mg PO DAILY 10/24/18 Aspirin [ASA -] 81 mg PO DAILY tab.chew 10/29/18 Magnesium Oxide [Mag-Ox -] 400 mg PO BID tablet 10/29/18 Spironolactone [Aldactone -] 25 mg PO DAILY tablet 10/29/18 Venlafaxine HCl [Effexor -] 25 mg PO DAILY tablet 10/29/18 Levothyroxine [Synthroid -] 50 mcg PO DAILY@0700 02/18/19 Sacubitril/Valsartan [Entresto 49 mg-51 mg Tablet] 1 each PO BID 02/18/19 Review of Systems - Review of Systems Constitutional: denies: Chills, Fever Cardiovascular: denies: Chest Pain, Palpitations, Shortness of Breath Respiratory: denies: Cough, Hemoptysis, Orthopnea, PND, SOB, SOB on Exertion Gastrointestinal: denies: Abdominal Pain, Constipation, Diarrhea, Melena, Nausea , Rectal Bleeding, Vomiting Genitourinary: denies: Dysuria, Hematuria Musculoskeletal: denies: Back Pain, Joint Pain Neurological: denies: Dizziness, Headache, Seizure, Syncope Vital Signs: Vital Signs Temperature 98 F 02/19/19 06:00 Pulse Rate 60 02/19/19 06:00 Respiratory Rate 18 02/19/19 08:25 Blood Pressure 134/70 02/19/19 06:00 O2 Sat by Pulse Oximetry (%) 94 L 02/19/19 08:25 Eyes: Yes: PERRL HENT: Yes: Atraumatic Neck: Yes: Supple Respiratory: Yes: CTA Bilaterally Gastrointestinal: Yes: Normal Bowel Sounds. No: Tenderness Cardiovascular: Yes: Regular Rate and Rhythm JVD: No PMI: Non-Displaced Heart Sounds: Yes: S1, S2. No: Gallop Murmur: Yes: Systolic Murmur, Grade 2 Edema: Yes - Other Data Labs, Other Data: CBC, BMP 02/18/19 18:30 02/18/19 18:30 Sinus rhythm with LBBB Imaging - Results Chest X-ray: Report Reviewed (Atelectasis) X-ray: Report Reviewed (Left hip replacement, fracture) Cat Scan: Report Reviewed (Lower extremity CT fracture Head CT unremarkable) EKG: Report Reviewed Problem List - Problems (1) Aortic stenosis Code(s): I35.0 - NONRHEUMATIC AORTIC (VALVE) STENOSIS (2) Mitral valve regurgitation Code(s): I34.0 - NONRHEUMATIC MITRAL (VALVE) INSUFFICIENCY (3) Fracture of left hip Code(s): S72.002A - FRACTURE OF UNSP PART OF NECK OF LEFT FEMUR, INIT Qualifiers: Encounter type: initial encounter Fracture type: closed Qualified Code(s) : S72.002A - Fracture of unspecified part of neck of left femur, initial encounter for closed fracture (4) Hyperlipidemia Code(s): E78.5 - HYPERLIPIDEMIA, UNSPECIFIED Qualifiers: Hyperlipidemia type: pure hypercholesterolemia Qualified Code(s): E78.00 - Pure hypercholesterolemia, unspecified; E78.0 - Pure hypercholesterolemia (5) Hypertensive cardiomyopathy Code(s): I11.9 - HYPERTENSIVE HEART DISEASE WITHOUT HEART FAILURE; I43 - CARDIOMYOPATHY IN DISEASES CLASSIFIED ELSEWHERE Qualifiers: Heart failure presence: with heart failure Qualified Code(s): I11.0 - Hypertensive heart disease with heart failure; I43 - Cardiomyopathy in diseases classified elsewhere (6) Hypothyroidism Code(s): E03.9 - HYPOTHYROIDISM, UNSPECIFIED (7) Left bundle branch block (LBBB) Code(s): I44.7 - LEFT BUNDLE-BRANCH BLOCK, UNSPECIFIED (8) Systolic dysfunction Code(s): I51.9 - HEART DISEASE, UNSPECIFIED Assessment/Plan 1. Left hip fracture with previous history of replacement 2. Severe LV systolic dysfunction with acute on chronic failure, currently euvolemic/compensated 3. Moderate and mild AR 4. Moderate MR 5. HTN 6. Hypercholesterolemia 7. Hypothyroidism PLAN: 1. Continue supportive care. Continue Entresto 97/103 mg BID and Aldactone 25 mg QD 2. Consider adding Carvedilol 3.125 mg BID if tolerated 3. Continue Lipitor 4. Options again discussed, but does not want to pursue further cardiac work up including cardiac catheterization and LifeVest 5. Orthopedic input to follow Roberto Sutton MD
--- NOTE | 2019-02-19 13:02 | PN ---
Progress Note (short form) - Note Progress Note: ORTHO FULL CONSULT DICTATED BY DR. SCOTT. LEFT PERIPROSTHETIC GREATER TROCH FX. A/P PT WBAT D/C TO [facility]
--- NOTE | 2019-02-19 13:48 | CONS ---
DATE OF CONSULTATION: 02/19/2019 ORTHOPEDIC CONSULTATION LOCATION: [facility] HISTORY OF PRESENT ILLNESS: Patient is an elderly custodial patient status post fall in the custodial complaining of some mild pain in her left hip. She is status post left total hip replacement done by another surgeon years ago. Negative LOC. PHYSICAL EXAMINATION: Extremities: On physical exam, she can straight leg raise on the left. She has mild pain with range of motion of her hip. Equal limb lengths. There is no gross swelling, ecchymosis, or erythema in the lower extremities. Calf is soft, nontender. She does have a great deal of crepitus with range of motion of her left knee. Otherwise neurovascularly intact. X-RAYS OF LEFT HIP: Show a nondisplaced fracture of the greater trochanter superimposed on a left total hip replacement, which does not appear to be loose. IMPRESSION: Left greater trochanteric periprosthetic left hip fracture of a well-seated total hip replacement in a patient with minimal pain. PLAN: An operative intervention is required. I will do closed treatment, and she can be weightbearing as tolerated with assistance and physical therapy. She can be transferred back to the custodial. We will follow her in the upcoming weeks with serial x-rays. AGATA SCOTT M.D. [id number]
[2019-02-19] MEDS: ATORVASTATIN CA 20 MG TABLET (FP) PO SCH (21:32)
[2019-02-20] MEDS: LEVOTHYROXINE NA 50 MCG TABLET (FP) PO SCH (06:10)
[2019-02-20 08:08] LABS: BASO % 0.4 % (0-2.0); EOS % 0.4 % (0-4.5); HEMATOCRIT 39.2 % (32.4-45.2); HEMOGLOBIN 12.6 GM/dl (10.7-15.3); LYMPH % 13.5 % (8-40); MCH 29.9 pg (25.7-33.7); MCHC 32.3 g/dl (32.0-36.0); MEAN CELL VOLUME 92.6 fl (80-96); MEAN PLT VOLUME 8.5 fl (7.5-11.1); MONO % 8.5 % (3.8-10.2); NEUT % 77.2 % (42.8-82.8); PLATELET COUNT 196 K/MM3 (134-434); RBC 4.23 M/mm3 (3.60-5.2); RDW 17.2 % (11.6-15.6); WHITE BLOOD COUNT 6.6 K/mm3 (4.0-10.8)
[2019-02-20 08:12] LABS: ALBUMIN 2.6 g/dl (3.4-5.0); BILIRUBIN,TOTAL 1.4 mg/dl (0.2-1); CALCIUM 7.9 mg/dl (8.5-10); CREATININE 0.7 mg/dl (0.55-1.3); POTASSIUM 3.9 mmol/L (3.5-5.1); TOT PROT 5.7 g/dl (6.4-8.2)
--- NOTE | 2019-02-20 09:16 | PN ---
Progress Note (short form) - Note Progress Note: ORTHO Pt seen and examined Selected Entries 02/20/19 05:00 Temperature 97.6 F Pulse Rate 70 Respiratory 18 Rate Blood Pressure 154/76 minimal ttp, good rom nvi a/p PT wbat ok to d/c from ortho pov f/u in 2-3 weeks
[2019-02-20] MEDS ORDERED: PT OWN MED DRAWER 7, Y5N ONE (09:30)
[2019-02-20] MEDS: SPIRONOLACTONE 25 MG TABLET (FP) PO SCH (09:39)
[2019-02-20] MEDS: SACUBITRIL/VALSARTAN 97 MG-103 MG TABLET PO SCH ×2 (09:40→21:33)
--- NOTE | 2019-02-20 16:54 | PN ---
Progress Note, Physician Chief Complaint: Patient has poor appetite, refusing food, has nausea, difficulty swallowing. There is no shortness of breath, no chest pain and edema improved considerably. History of Present Illness: 83 yo female admitted after a fall in the [place]. Patient injured her right femur and sustained a non displaced fracture of the femur along the old prosthesis. SHe was evaluated by Ortho and conservative management was recommended. The patient has no complaints of pain while at rest. - Current Medication List Current Medications: Active Medications Atorvastatin Calcium (Lipitor -) 20 mg PO HS [facility] Last Admin: 02/19/19 21:32 Dose: 20 mg Levothyroxine Sodium (Synthroid -) 50 mcg PO DAILY@0700 [facility] Last Admin: 02/20/19 06:10 Dose: 50 mcg Sacubitril/Valsartan (Entresto 97 Mg-103 Mg Tablet) 1 tab PO BID [facility] Last Admin: 02/20/19 09:40 Dose: 1 tab Spironolactone (Aldactone -) 25 mg PO DAILY [facility] Last Admin: 02/20/19 09:39 Dose: 25 mg - Objective Vital Signs: Vital Signs Temperature 97.9 F 02/20/19 14:19 Pulse Rate 71 02/20/19 14:19 Respiratory Rate 16 02/20/19 14:19 Blood Pressure 135/82 02/20/19 14:19 O2 Sat by Pulse Oximetry (%) 97 02/20/19 14:19 Constitutional: Yes: No Distress, Calm Eyes: Yes: Conjunctiva Clear, EOM Intact HENT: Yes: Atraumatic, Normocephalic Neck: Yes: Supple, Trachea Midline Cardiovascular: Yes: Regular Rate and Rhythm, S1, S2 Respiratory: Yes: Regular, CTA Bilaterally. No: Orthopnea, Poor Air Entry, SOB , SOB on Exertion Gastrointestinal: Yes: Normal Bowel Sounds, Soft. No: Hematemesis, Hepatomegaly Extremities: No: Calf Tenderness Edema: No Peripheral Pulses WNL: Yes Integumentary: Yes: Other (ulver of the right anterior wall decreased in size compared to admission, garnnulaion tissues present) Wound/Incision: Yes: Dressing Dry and Intact Neurological: Yes: Alert, Oriented Psychiatric: Yes: Alert, Oriented Labs: CBC, BMP 02/20/19 07:22 02/20/19 07:22 Problem List - Problems (1) Fracture of left hip Assessment/Plan: conservative management was recommended by Ortho for acute fracture of the left femur greater trochanter start physical therapy Code(s): S72.002A - FRACTURE OF UNSP PART OF NECK OF LEFT FEMUR, INIT Qualifiers: Encounter type: initial encounter Fracture type: closed Qualified Code(s) : S72.002A - Fracture of unspecified part of neck of left femur, initial encounter for closed fracture (2) CHF exacerbation Assessment/Plan: edema of lower extremities resolved continue Entresto Code(s): I50.9 - HEART FAILURE, UNSPECIFIED Qualifiers: (3) Hypothyroidism Assessment/Plan: dose has to be adjusted, there is possible MPZ infiltration of the tissue we will monitor as outpatient Code(s): E03.9 - HYPOTHYROIDISM, UNSPECIFIED (4) Ulcer Assessment/Plan: ulcer of the left anterior wall wash with NS , apply Xeroform daily wrap with cling wrap Code(s): [id number] -
[2019-02-20] MEDS: ATORVASTATIN CA 20 MG TABLET (FP) PO SCH (21:33)
[2019-02-21] MEDS: LEVOTHYROXINE NA 50 MCG TABLET (FP) PO SCH (06:17)
[2019-02-21 09:10] LABS: ALBUMIN 2.5 g/dl (3.4-5.0); BILIRUBIN,TOTAL 1.7 mg/dl (0.2-1); CALCIUM 7.9 mg/dl (8.5-10); CREATININE 0.6 mg/dl (0.55-1.3); POTASSIUM 3.9 mmol/L (3.5-5.1); TOT PROT 5.7 g/dl (6.4-8.2)
[2019-02-21] MEDS: SPIRONOLACTONE 25 MG TABLET (FP) PO SCH (09:11)
[2019-02-21] MEDS: SACUBITRIL/VALSARTAN 97 MG-103 MG TABLET PO SCH ×2 (09:11→21:19)
[2019-02-21] MEDS: ENOXAPARIN NA (PORCINE) 30 MG/0.3 ML DISP.SYRIN SQ SCH ×2 (09:11→09:14)
[2019-02-21] MEDS ORDERED: VENLAFAXINE HCL 25 MG TABLET PO ONE (19:20)
--- NOTE | 2019-02-21 19:31 | PN ---
Progress Note, Physician Chief Complaint: Patient has poor appetite, refusing food, has nausea, difficulty swallowing. There is no shortness of breath, no chest pain and edema improved considerably. History of Present Illness: 83 yo female admitted after a fall in the [place]. Patient injured her right femur and sustained a non displaced fracture of the femur along the old prosthesis. SHe was evaluated by Ortho and conservative management was recommended. The patient has no complaints of pain while at rest. - Current Medication List Current Medications: Active Medications Atorvastatin Calcium (Lipitor -) 20 mg PO HS [facility] Last Admin: 02/20/19 21:33 Dose: 20 mg Enoxaparin Sodium (Lovenox -) 30 mg SQ DAILY [facility] Last Admin: 02/21/19 09:14 Dose: Not Given Levothyroxine Sodium (Synthroid -) 50 mcg PO DAILY@0700 [facility] Last Admin: 02/21/19 06:17 Dose: 50 mcg Sacubitril/Valsartan (Entresto 97 Mg-103 Mg Tablet) 1 tab PO BID [facility] Last Admin: 02/21/19 09:11 Dose: 1 tab Spironolactone (Aldactone -) 25 mg PO DAILY [facility] Last Admin: 02/21/19 09:11 Dose: 25 mg Venlafaxine HCl (Effexor -) 25 mg PO ONCE ONE Stop: 02/21/19 19:21 Venlafaxine HCl (Effexor Xr -) 37.5 mg PO DAILY [facility] - Objective Vital Signs: Vital Signs Temperature 98.0 F 02/21/19 14:00 Pulse Rate 82 02/21/19 14:00 Respiratory Rate 18 02/21/19 14:00 Blood Pressure 143/55 L 02/21/19 14:00 O2 Sat by Pulse Oximetry (%) 98 02/21/19 14:00 Constitutional: Yes: No Distress, Calm Eyes: Yes: Conjunctiva Clear, EOM Intact HENT: Yes: Atraumatic, Normocephalic Neck: Yes: Supple, Trachea Midline Cardiovascular: Yes: Regular Rate and Rhythm, S1, S2. No: Murmur, Rub Respiratory: Yes: Other (bilateral crackles at both bases). No: Cough, Diminished, Orthopnea, Rhonchi, SOB Gastrointestinal: Yes: Normal Bowel Sounds, Soft. No: Hepatomegaly, Splenomegaly ...Rectal Exam: Yes: Deferred Breast(s): Yes: WNL Extremities: No: Calf Tenderness Edema: No Peripheral Pulses WNL: Yes Neurological: Yes: Alert, Oriented Psychiatric: Yes: Alert, Oriented Labs: CBC, BMP 02/20/19 07:22 02/21/19 08:40 Problem List - Problems (1) Fracture of left hip Assessment/Plan: conservative management was recommended by Ortho for nondisplaced fracture of the left femur shaft discharge to subacute rehabilitation in am Code(s): S72.002A - FRACTURE OF UNSP PART OF NECK OF LEFT FEMUR, INIT Qualifiers: Encounter type: initial encounter Fracture type: closed Qualified Code(s) : S72.002A - Fracture of unspecified part of neck of left femur, initial encounter for closed fracture (2) CHF exacerbation Assessment/Plan: edema of lower extremities resolved continue Entresto monitor MAgnesium CMP in am Code(s): I50.9 - HEART FAILURE, UNSPECIFIED Qualifiers: (3) Hypothyroidism Assessment/Plan: dose has to be adjusted, there is possible MPZ infiltration of the tissue we will monitor as outpatient Code(s): E03.9 - HYPOTHYROIDISM, UNSPECIFIED (4) Cellulitis of lower extremity Assessment/Plan: improving with bed rest Problems reviewed: No Code(s): L03.119 - CELLULITIS OF UNSPECIFIED PART OF LIMB Qualifiers: Laterality: unspecified laterality Qualified Code(s): L03.119 - Cellulitis of unspecified part of limb (5) Ulcer Assessment/Plan: of the right anterior wall decreased base size , granulation tissues present,m no inflammation of the surrounding tissue continue would dressing daily Code(s): [id number] -
[2019-02-21] MEDS: ATORVASTATIN CA 20 MG TABLET (FP) PO SCH (21:19)
[2019-02-22] MEDS: LEVOTHYROXINE NA 50 MCG TABLET (FP) PO SCH ×2 (06:13→07:58)
[2019-02-22 08:08] LABS: BASO % 0.5 % (0-2.0); EOS % 0.7 % (0-4.5); HEMATOCRIT 36.1 % (32.4-45.2); HEMOGLOBIN 11.8 GM/dl (10.7-15.3); MCH 30.6 pg (25.7-33.7); MCHC 32.7 g/dl (32.0-36.0); MEAN CELL VOLUME 93.7 fl (80-96); MEAN PLT VOLUME 8.4 fl (7.5-11.1); MONO % 13.8 % (3.8-10.2); PLATELET COUNT 201 K/MM3 (134-434); RBC 3.85 M/mm3 (3.60-5.2); RDW 17.1 % (11.6-15.6); WHITE BLOOD COUNT 4.6 K/mm3 (4.0-10.8)
[2019-02-22 08:17] LABS: ALBUMIN 2.4 g/dl (3.4-5.0); BILIRUBIN,TOTAL 1.4 mg/dl (0.2-1); CALCIUM 7.9 mg/dl (8.5-10); CREATININE 0.5 mg/dl (0.55-1.3); MAGNESIUM 1.5 mg/dL (1.8-2.4); POTASSIUM 3.6 mmol/L (3.5-5.1); TOT PROT 5.4 g/dl (6.4-8.2)
[2019-02-22] MEDS: SPIRONOLACTONE 25 MG TABLET (FP) PO SCH (09:54)
[2019-02-22] MEDS: ENOXAPARIN NA (PORCINE) 30 MG/0.3 ML DISP.SYRIN SQ SCH (09:55)
[2019-02-22] MEDS: SACUBITRIL/VALSARTAN 97 MG-103 MG TABLET PO SCH (09:55)
[2019-02-22] MEDS ORDERED: VENLAFAXINE HCL 37.5 MG E.R. CAPSULE (FP) PO SCH (10:00)
[2019-02-22] MEDS ORDERED: MAGNESIUM SULF 50% (8.12 MEQ/2 ML-1 GM VIAL) IVPB ONE (13:57)
[2019-02-22] MEDS ORDERED: MAGNESIUM OXIDE 400 MG TABLET (FP) PO SCH ×2 (14:00→22:00)
--- NOTE | 2019-02-22 14:11 | DS ---
Physical Examination Vital Signs: Vital Signs Temperature 97.6 F 02/22/19 12:18 Pulse Rate 89 02/22/19 12:18 Respiratory Rate 18 02/22/19 12:18 Blood Pressure 126/60 02/22/19 12:18 O2 Sat by Pulse Oximetry (%) 94 L 02/22/19 08:16 Constitutional: Yes: No Distress, Calm, Poor Hygeine Eyes: Yes: Conjunctiva Clear HENT: Yes: Atraumatic, Normocephalic Neck: Yes: Supple, Trachea Midline Cardiovascular: Yes: Regular Rate and Rhythm, S1, S2 Respiratory: Yes: Regular, CTA Bilaterally Gastrointestinal: Yes: Normal Bowel Sounds, Soft, Abdomen, Obese. No: Hepatomegaly, Tenderness Renal/: Yes: WNL Breast(s): Yes: WNL Extremities: No: Calf Tenderness Edema: No Peripheral Pulses WNL: Yes Integumentary: Yes: Other (healed right anterior wall ulcer) Labs: CBC, BMP 02/22/19 07:19 02/22/19 07:19 Discharge Summary Problems reviewed: Yes Reason For Visit: FRACTURE OF LEFT HIP Current Active Problems Aortic stenosis (Acute) Fracture of left hip (Acute) Mitral valve regurgitation (Acute) Ulcer (Acute) Ulcer (Acute) Hospital Course: Patient admitted after fall with right femur greater trochanter fracture. Patient is not a candidate for surgery and will be discharged for subacute rehab. During this admission the Synthroid dosage was increased to 75 mcg daily and Magnesium oxide was started at a dose of 400 mg twice daily. Since the patient's bilirubin was elevated an US of [facility] abdomen was performed. Results are pending. Condition: Fair - Instructions - Home Medications Comprehensive Discharge Medication List: Ambulatory Orders Simvastatin 20 mg PO DAILY 10/24/18 Aspirin [ASA -] 81 mg PO DAILY tab.chew 10/29/18 Magnesium Oxide [Mag-Ox -] 400 mg PO BID tablet 10/29/18 Spironolactone [Aldactone -] 25 mg PO DAILY tablet 10/29/18 Levothyroxine [Synthroid -] 50 mcg PO DAILY@0700 02/18/19 Atorvastatin Ca [Lipitor] 20 mg PO HS tablet 02/21/19 Levothyroxine [Synthroid -] 50 mcg PO DAILY@0700 tablet 02/21/19 Sacubitril/Valsartan [Entresto 97 mg-103 mg Tablet] 1 tab PO BID tablet Spironolactone [Aldactone -] 25 mg PO DAILY tablet 02/21/19 Venlafaxine HCl ER [Effexor Xr -] 37.5 mg PO DAILY cap.er.24h 02/21/19 Levothyroxine [Synthroid -] 75 mcg PO DAILY@0700 tablet 02/22/19 Magnesium Oxide [Mag-Ox -] 400 mg PO BID tablet 02/22/19
[2019-02-22] MEDS ORDERED: MAGNESIUM SULFATE IN WATER 2 GM/50 ML IVPB IVPB ONE (14:15)
[2019-02-22 14:24] VITALS: BP 113/66; PULSE 96; TEMP 97.9
[2019-02-23] MEDS ORDERED: LEVOTHYROXINE NA 75 MCG TABLET (FP) PO SCH (07:00)
[2019-02-23] MEDS ORDERED: ASPIRIN 81 MG CHEWABLE TABLETS PO SCH (10:00)
[2019-02-23] MEDS ORDERED: PATIENT'S OWN MEDICATION (NON-FORMULARY) (Simvastatin [Simvastatin] 20 MG) PO SCH (10:00)
[2019-02-23] MEDS ORDERED: SPIRONOLACTONE 25 MG TABLET (FP) PO SCH (10:00)
== END 2019-02-22 16:25 | DRG 536 ==
LOC: FER 17:09 → FM/S 21:31
PROVIDERS: ADMIT Internal Medicine; ATTEND Internal Medicine
DX: S72.115A Nondisplaced fracture of greater trochanter of left femur, initial encounter for closed fracture (principal); I50.22 Chronic systolic (congestive) heart failure; J98.11 Atelectasis; I42.0 Dilated cardiomyopathy; E78.5 Hyperlipidemia, unspecified; I35.0 Nonrheumatic aortic (valve) stenosis; I34.0 Nonrheumatic mitral (valve) insufficiency; E03.9 Hypothyroidism, unspecified; I11.0 Hypertensive heart disease with heart failure; W19.XXXA Unspecified fall, initial encounter; Y93.9 Activity, unspecified; Y92.89 Other specified places as the place of occurrence of the external cause
CPT/HCPCS: 36415; 70450-TC; 71045-TC-FY; 73523-TC-FY; 73700-TC-RT; 76700-TC; 80053; 83036; 83735; 84443; 85025; 97116-GP; 97162-GP; 99284-25

== ENCOUNTER 2021-07-18 21:21 | Emergency (ER) | payer OTHER, MEDICARE ==
[2021-07-18 21:49] VITALS: BP 158/88; PULSE 83; TEMP 97.9; BMI 21.8
== END 2021-07-18 23:07 | disposition home or self-care (01) ==
LOC: FER 21:21
DX: S50.312A Abrasion of left elbow, initial encounter (principal); W01.0XXA Fall on same level from slipping, tripping and stumbling without subsequent striking against object, initial encounter
CPT/HCPCS: 99282-25

== ENCOUNTER 2021-09-05 10:00 | Emergency (ER) | payer OTHER, MEDICARE ==
[2021-09-05 10:24] VITALS: BMI 21.3
[2021-09-05 11:43] LABS: HEMOGLOBIN 11.1 G/dL (10.7-15.3); MCH 28.8 pg (25.7-33.7); MCHC 33.5 g/dl (32.0-36.0); MEAN CELL VOLUME 85.6 fl (80-96); MEAN PLT VOLUME 7.9 fl (7.5-11.1); PLATELET COUNT 252.8 10^3/uL (134-434); RBC 3.85 10^6/uL (3.60-5.2); RDW 17.4 % (11.6-15.6); WHITE BLOOD COUNT 4.7 10^3/uL (4.0-10.8)
[2021-09-05 11:46] LABS: ALBUMIN 3.3 g/dl (3.4-5.0); BILIRUBIN,TOTAL 0.5 mg/dl (0.2-1); CALCIUM 8.8 mg/dl (8.5-10); CREATININE 0.7 mg/dl (0.55-1.3); TOT PROT 6.8 g/dl (6.4-8.2)
[2021-09-05 14:46] VITALS: BP 152/75; PULSE 76; TEMP 98.6
== END 2021-09-05 14:59 | disposition home or self-care (01) ==
LOC: FER 10:00 → SUPCPDRO 10:00 → FER 14:59
DX: D50.9 Iron deficiency anemia, unspecified (principal); F03.90 Unspecified dementia, unspecified severity, without behavioral disturbance, psychotic disturbance, mood disturbance, and anxiety; W19.XXXA Unspecified fall, initial encounter
CPT/HCPCS: 36415; 71045-TC-FY; 80053; 84484; 85027; 93005; 99285-25